=== PATIENT | male | born 1940 | race Caucasian/White ===

== ENCOUNTER 2025-10-22 18:54 | Emergency (ER) | payer MEDICARE, OTHER, SELFPAY ==
--- NOTE | ~2025-10-22 | CT_ITS ---
EXAMINATION: CT cervical spine wo con COMPARISON: None HISTORY: fall; accidentally fell out of wheelchair TECHNIQUE: Axial images were obtained through the spine without IV contrast. Coronal, sagittal reconstruction images were obtained from the axial views. CT scan performed using dose optimization techniques including the following automated exposure control; adjustment of mA and/or kV; use of iterative reconstruction technique. Automatic exposure control was used to reduce radiation dose. Permanent radiation dose record is archived to PACS. FINDINGS: Grade 1 anterolisthesis of C3 on C4. Grade 1 anterolisthesis of C7 on T1, no acute fracture is identified. There is a remote fracture of C2. Severe loss of disc height at C2-3, C3-4, C4-5 C5-6 and C6-7 with moderate to severe canal and foraminal stenosis. Soft tissues unremarkable. Impression: No acute fracture or subluxation. Moderate to severe degenerative changes detailed above with sequelae of previous trauma. MRI suggested to assess as clinically warranted. Reviewed, dictated and finalized at location P. TMENT COMMUNITY ASSISTANT MANAGER Impression: No acute fracture or subluxation. Moderate to severe degenerative changes detai led above with sequelae of previous trauma. MRI suggested to assess as clinical ly warranted.
--- NOTE | ~2025-10-22 | CT_ITS ---
EXAM/PROCEDURE: CT facial bones wo con HISTORY: fall COMPARISON: None available. TECHNIQUE: Facial bone CT without contrast FINDINGS: Mildly displaced minimally comminuted right-sided superomedial orbital rim fracture present with fracture extending into the right lamina papyracea. Mild infiltrative/edematous changes present along the superolateral margin of the the medial rectus muscle. Slight strandy or infiltrative changes may also be present on the medial aspect of the intraconal soft tissues as seen on image 58 series 3. No gross mass effect in the post septal soft tissues. The globes appear symmetric and intact. Small hematoma in the preseptal soft tissues especially along the lateral aspect. No other facial bone fracture seen. Dental structures are obscured by a dental amalgam. IMPRESSION: Mildly comminuted right superomedial orbital rim fracture with fracture extending into the lamina papyracea. Mild infiltrative/edematous appearing changes in the post septal soft tissues and possible intraconal soft tissues but no gross hematoma or mass effect. NOTE: Preliminary radiology report provided by [facility] radiologist/physician. Reviewed, dictated and finalized at location A. OTYPESETTER OPERATOR IMPRESSION: Mildly comminuted right superomedial orbital rim fracture with fracture extendi ng into the lamina papyracea. Mild infiltrative/edematous appearing changes in the post septal soft tissues and possible intraconal soft tissues but no gross hematoma or mass effect. NOTE: Preliminary radiology report provided by [facility] radiologist/physician.
--- NOTE | ~2025-10-22 | CT_ITS ---
EXAMINATION: CT brain wo delores, 10/22/2025 19:20 LIVESTOCK BROKER HISTORY: fall; accidentally fell out of wheelchair COMPARISON: No comparisons available. Technique: Axial images obtained of the brain without contrast. One or more of the following dose reduction techniques were used: automated exposure control, adjustment of the mA and/or kV according to patient size, use of iterative reconstruction technique. Findings: There are remote appearing bilateral basal ganglial lacunar infarcts with remote appearing subcortical bilateral frontal and parietal infarcts. No acute infarct or hemorrhage. No midline shift or mass effect. No extra-axial fluid collections. Mastoid air cells unremarkable. Sinuses and orbits unremarkable. No acute fracture. No significant facial or scalp soft tissue swelling evident. No radiopaque foreign body is seen. Impression: 1. Motion artifact limits evaluation. No acute infarct or hemorrhage Reviewed, dictated and finalized at location P. STOCK BROKER Impression: 1. Motion artifact limits evaluation. No acute infarct or hemorrhage
[2025-10-22 18:52] VITALS: BP 108/64; PULSE 66; RESP 13; O2SAT 95
--- NOTE | 2025-10-22 19:00 | ECG_ITS ---
Test Date: 2025-10-22 19:09:05 Measurements Intervals [place] Rate: 68 P: 0 UT: 0 QRS: 38 QRSD: 177 T: 28 QT: 462 QTc: 492 Interpretive Statements ATRIAL SENSE- ELECTRONIC VENTRICULAR PACEMAKER WITH VENTRICULAR PREMATURE COMPLEXES BASELINE ARTIFACT- I, II, III, AVR, AVL, AVF, V4-V6 NO FURTHER INTERPRETATION IS POSSIBLE ATYPICAL ECG No previous ECG available for comparison Electronically Signed On 10-22-2025 20:03:52 SURGICAL AIDES TEACHER by Kwesi Saini D.O.
[2025-10-22 19:12] VITALS: TEMP 35.9
--- NOTE | 2025-10-22 19:16 | PC.NURSE ---
EDP made aware of pt VS. no new orders.
[2025-10-22 19:25] LABS: Hematocrit 39.8 % (42.0-52.0); Hemoglobin 13.0 g/dL (14.0-18.0); Immature Granulocyte Percent A 0.2 % (0-0.5); Lymphocytes Absolute Auto 1.41 K/mm3 (0.9-3.2); Mean Corpuscular HGB Conc 32.7 g/dl (32-36); Mean Corpuscular Hemoglobin 29.1 pg (26-34); Mean Corpuscular Volume 89.0 fl (80-100); Nucleated Red Blood Cells Absolute Auto 0.000 K/mm3 (0.0-0.012); Nucleated Red Blood Cells Perc 0.0 % (0.0-0.2); Platelet Count Result 232 k/mm3 (150-375); Red Blood Count 4.47 M/mm3 (4.6-6.20); White Blood Count 5.2 K/mm3 (4.5-10.0)
[2025-10-22 19:30] LABS: INR 1.2; Prothrombin Time 15.0 Seconds (11.1-14.7)
--- NOTE | 2025-10-22 19:30 | ECG_ITS ---
Test Date: 2025-10-22 19:51:05 Measurements Intervals [place] Rate: 69 P: 0 IN: 0 QRS: 49 QRSD: 176 T: 53 QT: 445 QTc: 477 Interpretive Statements ATRIAL SENSE- ELECTRONIC VENTRICULAR PACEMAKER BASELINE ARTIFACT- I, II, III, AVR, AVL, AVF, V1-V6 NO FURTHER INTERPRETATION IS POSSIBLE ATYPICAL ECG Compared to ECG 10/22/2025 19:09:05 Ventricular premature complex(es) no longer present Electronically Signed On 10-22-2025 20:07:21 CIVIL STRUCTURAL DESIGNER by Kwesi Saini D.O.
[2025-10-22 19:31] LABS: Partial Thromboplastin Time 28.5 Seconds (22.3-36.8)
[2025-10-22 19:35] LABS: Alanine Aminotransferase 21 U/L (6-50); Albumin Level 3.7 g/dL (3.5-5.1); Alkaline Phosphatase 103 U/L (38-126); Anion Gap 2 mmol/L (4-12); Aspartate Amino Transferase 23 U/L (17-59); Bilirubin,Total 0.4 mg/dL (0.2-1.3); Blood Urea Nitrogen 23 mg/dL (9-20); Calcium 9.3 mg/dL (8.4-10.2); Carbon Dioxide 33 mmol/L (22-30); Chloride 108 mmol/L (98-107); Estimated CRCL calculation 54 ml/min; Estimated Glomerular Filt Rate > 60; Glucose 130 mg/dL (65-110); Potassium 3.9 mmol/L (3.4-5.0); Sodium 143 mmol/L (137-145); Total Protein 6.7 g/dL (6.3-8.2)
--- NOTE | 2025-10-22 19:57 | ED.GENADULT ---
HPI - General Adult General Chief complaint: Fall Stated complaint: fall Time Seen by Provider: 10/22/25 18:57 History of Present Illness HPI narrative: 84-year-old male presenting from [facility] skilled nursing by EMS after sustaining a fall from his wheelchair. EMS relays to nursing staff that the patient was in his wheelchair and fell forward hitting his head. Patient is A&O x0 with EMS noting he is A&O x1-2 at baseline. Significant history of Alzheimer's and dementia. Of note, patient receives Seroquel and Ativan TID for agitation. Patient received these medications prior to arrival. Related Data Allergies Allergy/AdvReac Type Severity Reaction Status Date / Time levofloxacin (From Levaquin) Allergy Unknown Verified 10/22/25 19:07 metoprolol Allergy Unknown Verified 10/22/25 19:07 oxycodone (From OxyContin) Allergy Unknown Verified 10/22/25 19:07 Review of Systems Review of Systems: All systems reviewed & are unremarkable except as noted in HPI and below Exam Narrative: GENERAL: No acute distress. Does not follow simple commands. Generalized tremor. HEAD: Approx. 2x2cm right-sided forehead superficial abrasion and periorbital right eye swelling with midline hematoma. EYES: PERRLA and EOMI. ENT: Nares clear, no rhinorrhea or epistaxis. Mucous membranes moist. Oropharynx without tonsillar hypertrophy exudate or other lesions. Bilateral TMs pearly urbina non-bulging NECK: Supple. No adenopathy or masses. No carotid bruits or JVD CHEST: Clear to auscultation. No respiratory distress. No wheezes rales or rhonchi HEART: Regular rate and rhythm. No murmur heard. Normal peripheral pulses. ABDOMEN: Soft, nontender, nondistended, normal active bowel sounds. EXTREMITIES: Moves all extremities. Bilateral LE erythema and mild pitting edema up to mid calf. SKIN: Warm, dry. Erythematous lower extremities. NEURO: Alert and oriented x0. Course Vital Signs Vital signs: Vital Signs Pulse Rate 66 10/22/25 18:52 Respiratory Rate 13 10/22/25 18:52 Blood Pressure 108/64 10/22/25 18:52 Pulse Oximetry 95 10/22/25 18:52 Oxygen Delivery Room Air 10/22/25 18:52 Temperature 96.6 F L 12/14/25 19:12 Pulse Rate 66 10/22/25 18:52 Respiratory Rate 13 10/22/25 18:52 Blood Pressure 108/64 10/22/25 18:52 Pulse Oximetry 95 10/22/25 18:52 Oxygen Delivery Room Air 10/22/25 18:52 MDM MDM Narrative Medical decision making narrative: 84-year-old male presenting from [facility] by EMS after sustaining a fall from his wheelchair. EMS relays to nursing staff that the patient was in his wheelchair and fell forward hitting his head. Patient is A&O x0 with EMS noting he is A&O x1-2 at baseline. Significant history of Alzheimer's and dementia. Of note, patient receives Seroquel and Ativan TID for agitation. Patient received these medications prior to arrival. Patient's records do not indicate the use of blood thinners. Upon my initial assessment patient is unable to follow simple commands and refuses to open his eyes for sufficient exam. Patient's EKGs and labs are without significant high risk changes. Vitals are stable. CT head and neck demonstrates no acute abnormalities. CT facial demonstrates a comminuted displaced left superior medial orbital rim fracture with subtle associated inflammatory change. There is a minimal amount of hemorrhage adjacent to the lateral rectus muscle without significant mass effect upon this structure. Right preseptal soft tissue hematoma. I personally got in touch with the patient's POA who states he wanted us to do everything we could for the patient. Discussed with Dr. Andrews with ENT patient presentation and workup. The only recommendation he had was discussing the findings with ophthalmology for concerns regarding the hemorrhage adjacent to the lateral rectus muscle. Initially called [facility] but then the POA requested [facility]. Discussed with Dr. Mariza Tipton with [facility] Ophthalmology patient presentation and workup and she states that as long as there is no concern for entrapment and compartment syndrome, he can be seen outpatient in their clinic. ER provider Dr. Gay was able to perform a better physical exam which demonstrated no signs of entrapment or globe injury noting that the exam was still difficult. Patient's POA was updated on the patient's workup and treatment plan. He agrees with discussion and plan of care. All questions were answered to the patient's satisfaction. The patient is appropriate for outpatient treatment and follow-up. Given reasons to return. Differential Diagnosis Differential Diagnosis: Differential diagnostic considerations for head injury/trauma include post-concussion syndrome, closed head injury, intercranial hemorrhage, basilar skull fracture, facial fractures, globe injury, laceration. Lab Data 10/22/25 19:09 10/22/25 19:09 Labs: Lab Results 10/22/25 10/22/25 Range/Units 19:09 19:11 WBC 5.2 (4.5-10.0) K/mm3 RBC 4.47 L (4.6-6.20) M/mm3 Hgb 13.0 L (14.0-18.0) g/dL Hct 39.8 L (42.0-52.0) % MCV 89.0 (80-100) fl MCH 29.1 (26-34) pg MCHC 32.7 (32-36) g/dl RDW 13.1 (11.5-14.5) % Plt Count 232 (150-375) k/mm3 MPV 10.9 H (7.4-10.4) fl Immature Gran % (Auto) 0.2 (0-0.5) % Neut % (Auto) 52.5 (45.5-73.1) % Lymph % (Auto) 27.4 (18.3-44.2) % [place] % (Auto) 14.8 H (2.6-8.5) % Eos % (Auto) 4.7 H (0-4.4) % Baso % (Auto) 0.4 (0.2-1.2) % Lymph # (Auto) 1.41 (0.9-3.2) K/mm3 [place] # (Auto) 0.8 H (0.1-0.6) K/mm3 Eos # (Auto) 0.2 (0-0.3) K/mm3 Baso # (Auto) 0.0 (0.0-0.1) K/mm3 Abs Immat Gran (auto) 0.01 (0.00-0.031) K/mm3 Absolute Neuts (auto) 2.7 (1.3-6.7) K/mm3 Absolute Nucleated RBC 0.000 (0.0-0.012) K/mm3 Nucleated RBC % 0.0 (0.0-0.2) % PT 15.0 H (11.1-14.7) Seconds INR 1.2 APTT 28.5 (22.3-36.8) Seconds Sodium 143 (137-145) mmol/L Potassium 3.9 (3.4-5.0) mmol/L Chloride 108 H (98-107) mmol/L Carbon Dioxide 33 H (22-30) mmol/L Anion Gap 2 L (4-12) mmol/L BUN 23 H (9-20) mg/dL Creatinine 0.95 (0.7-1.3) mg/dL Estim Creat Clear Calc 54 ml/min Estimated GFR > 60 (59 - ) Glucose 130 H (65-110) mg/dL Lactic Acid 0.8 (0.7-2.0) mmol/L Calcium 9.3 (8.4-10.2) mg/dL Total Bilirubin 0.4 (0.2-1.3) mg/dL AST 23 (17-59) U/L ALT 21 (6-50) U/L Alkaline Phosphatase 103 (38-126) U/L Total Protein 6.7 (6.3-8.2) g/dL Albumin 3.7 (3.5-5.1) g/dL Imaging Data Radiologist's impression: ITS Impressions Head CT 10/22/25 19:41 Impression: 1. Motion artifact limits evaluation. No acute infarct or hemorrhage Cervical Spine CT 10/22/25 20:03 Impression: No acute fracture or subluxation. Moderate to severe degenerative changes detailed above with sequelae of previous trauma. MRI suggested to assess as clinically warranted. Face CT 10/23/25 07:48 IMPRESSION: Mildly comminuted right superomedial orbital rim fracture with fracture extending into the lamina papyracea. Mild infiltrative/edematous appearing changes in the post septal soft tissues and possible intraconal soft tissues but no gross hematoma or mass effect. NOTE: Preliminary radiology report provided by [facility] radiologist/physician. ECG Data EKG #1: ECG completion date: 10/22/25 ECG completion time: 19:51 normal rate and sinus rhythm Pacemaker function: normal pacer function EKG #2: ECG completion date: 10/22/25 ECG completion time: 19:09 normal rate and sinus rhythm Pacemaker function: normal pacer function Discharge Plan Discharge Clinical Impression: Fall, Hematoma of eyelid, Head injury due to trauma, Dementia, AD (Alzheimer's disease) Patient Disposition: NH [facility]/Asst Living Condition: Stable Instructions: Head Injury (ED), Fall Prevention (ED) Additional Instructions: Patient sustained an injury to his right eye. Dr. Mariza Tipton with [facility] Ophthalmology recommended close follow-up outpatient. Call [phone] to schedule an appointment. Return to the ER if you experience any increase in redness, swelling, pain, fevers/chills, chest pain, shortness of breath, or any symptoms concerning to you. Follow-up with primary care provider for other general concerns. Patient Language: Romanian Follow-up/Referrals: Dr. Mariza Tipton MD [Other] Referral Note: [facility] Ophthalmology PHYSICIAN,AUTO TRANSMISSION SPECIALIST [Primary Care Provider, Internal Medicine]
[2025-10-22] MEDS: LORazepam INJ (*CRX) 2 MG/ML VIAL IV PUSH (23:39)
== END 2025-10-23 00:38 ==
DX: S00.11XA Contusion of right eyelid and periocular area, initial encounter (principal); G30.9 Alzheimer's disease, unspecified; F02.80 Dementia in other diseases classified elsewhere, unspecified severity, without behavioral disturbance, psychotic disturbance, mood disturbance, and anxiety; Z95.0 Presence of cardiac pacemaker; W05.0XXA Fall from non-moving wheelchair, initial encounter
CPT/HCPCS: 36415; 70450; 70486; 72125; 80053; 83605; 85025; 85610; 85730; 93005; 96374; 99284; J2060

== ENCOUNTER 2025-10-27 17:22 | Observation (INO) | payer MEDICARE, SELFPAY ==
[2025-10-27] VITALS (7 sets, daily range): BP systolic 127–140; BP diastolic 51–96; PULSE 88–97; RESP 16–26; TEMP 37.1–37.2; O2SAT 96–97; BMI 34.6
--- NOTE | ~2025-10-27 | CT_ITS ---
CT chst ab pel thor lum wo HISTORY: FALL . COMPARISON: None. TECHNIQUE: Axial images of the chest, abdomen and pelvis were obtained without infusion of intravenous contrast which sensitivity. FINDINGS: CT CHEST: The examination demonstrates no pulmonary nodules, infiltrates and/or effusions. Cardiac size and mediastinal configuration are normal in appearance. There is aneurysmal dilatation of the aorta measuring 4.2 cm. Ossified granulomas are noted throughout the lungs bilaterally. The visualized organs of the upper abdomen are unremarkable. IMPRESSION: No acute cardiopulmonary process. Aneurysmal dilatation of the ascending aorta measuring 4.2 cm. No pathologic enhancement is noted. No pathologically enlarged mediastinal lymphadenopathy is noted. CT abdomen and pelvis with contrast: The liver parenchyma is unremarkable. No intrahepatic mass or ductal dilatation is evident. The gallbladder is unremarkable. The pancreas and spleen are normal in appearance. The adrenal glands are symmetric in size. The kidneys demonstrate symmetric uptake and excretion of contrast. No cystic mass is evident. There is no solid mass. There is no hydronephrosis. Evaluation of the stomach and bowel loops are limited due to lack of oral contrast. Fat-containing inguinal hernias are noted bilaterally. The bladder and rectum are normal. No free intraperitoneal fluid or air is evident. There is no significant retroperitoneal lymphadenopathy. The aorta, visceral vessels and renal arteries demonstrate normal caliber and patency. The lower thoracic and lumbar vertebrae are in normal alignment. IMPRESSION: No acute abnormality is noted in the abdomen and pelvis. CT thoracic spine: [There is normal alignment of the thoracic vertebrae.] [No thoracic compression fracture is evident.] [There is no prevertebral soft tissue swelling.] Generative changes with disc space narrowing are noted. [There is no high-grade spinal canal stenosis or foraminal narrowing.] IMPRESSION: 1. [No thoracic compression fracture or prevertebral soft tissue swelling is evident.] 2. [There are no significant degenerative changes.] 3. [No high-grade spinal canal stenosis or foraminal narrowing is evident.] CT lumbar spine: FINDINGS: The axial images demonstrate no acute fracture or paravertebral soft tissue swelling. Degenerative changes with disc bulging and uncovertebral hypertrophy are noted. IMPRESSION: No acute fracture or subluxation. All CT scans at this facility are performed using low dose modulation techniques as appropriate to perform exam including the following: automated exposure control; use of iterative reconstruction technique; adjustment of the mA and/or kV according to patient size (this includes techniques or standardized protocols for targeted exams where dose is matched to indication/reason for exam) Reviewed, dictated and finalized at location S. R BOOT TOP ASSEMBLER IMPRESSION: No acute cardiopulmonary process. Aneurysmal dilatation of the ascending aorta measuring 4.2 cm. No pathologic enhancement is noted. No pathologically enlarged mediastinal lymphadenopathy is noted. CT abdomen and pelvis with contrast: The liver parenchyma is unremarkable. No intrahepatic mass or ductal dilatation is evident. The gallbladder is unremarkable. The pancreas and spleen are alcon l in appearance. The adrenal glands are symmetric in size. The kidneys demonstrate symmetric uptake and excretion of contrast. No cystic m ass is evident. There is no solid mass. There is no hydronephrosis. Evaluation of the stomach and bowel loops are limited due to lack of oral contr ast. Fat-containing inguinal hernias are noted bilaterally. The bladder and rectum are normal. No free intraperitoneal fluid or air is evid ent. There is no significant retroperitoneal lymphadenopathy. The aorta, visceral vessels and renal arteries demonstrate normal caliber and p atency. The lower thoracic and lumbar vertebrae are in normal alignment. IMPRESSION: No acute abnormality is noted in the abdomen and pelvis. CT thoracic spine: [There is normal alignment of the thoracic vertebrae.] [No thoracic compressio n fracture is evident.] [There is no prevertebral soft tissue swelling.] Generative changes with disc space narrowing are noted. [There is no high-grade spinal canal stenosis or foraminal narrowing.] IMPRESSION: 1. [No thoracic compression fracture or prevertebral soft tissue swelling is e vident.] 2. [There are no significant degenerative changes.] 3. [No high-grade spinal canal stenosis or foraminal narrowing is evident.] CT lumbar spine: FINDINGS: The axial images demonstrate no acute fracture or paravertebral soft tissue swelling. Degenerative changes with disc bulging and uncovertebral hyper trophy are noted. IMPRESSION: No acute fracture or subluxation. All CT scans at this facility are performed using low dose modulation techniqu es as appropriate to perform exam including the following: automated exposure c ontrol; use of iterative reconstruction technique; adjustment of the mA and/or kV according to patient size (this includes techniques or standardized protocol s for targeted exams where dose is matched to indication/reason for exam)
--- NOTE | ~2025-10-27 | XR_ITS ---
XR chest 1V INDICATION:. 84 years Male LETHARGY COMPARISON: None FINDINGS: A single view of the chest demonstrates normal heart size. The lungs are clear. There is no evidence of pneumothorax or pleural effusion. IMPRESSION: No acute pulmonary findings. Reviewed, dictated and finalized at location S. YSIS RN
--- NOTE | ~2025-10-27 | CT_ITS ---
CT brain wo con HISTORY:LETHARGY COMPARISON: None. TECHNIQUE: Axial images were obtained of the head without intravenous contrast. FINDINGS: No acute intracranial hemorrhage, mass effect or midline shift. No extra-axial fluid collections. There is chronic white matter microangiopathic changes within the periventricular white matter.The calvarium is intact. Visualized paranasal sinuses and mastoid air cells are clear. IMPRESSION: No acute intracranial hemorrhage or extra axial fluid collections. Chronic white matter microangiopathic changes. All CT scans at this facility are performed using low dose modulation techniques as appropriate to perform exam including the following: automated exposure control; use of iterative reconstruction technique; adjustment of the mA and/or kV according to patient size (this includes techniques or standardized protocols for targeted exams where dose is matched to indication/reason for exam). Reviewed, dictated and finalized at location S. ING MACHINE TECHNICIAN IMPRESSION: No acute intracranial hemorrhage or extra axial fluid collections. Chronic white matter microangiopathic changes. All CT scans at this facility are performed using low dose modulation techniqu es as appropriate to perform exam including the following: automated exposure c ontrol; use of iterative reconstruction technique; adjustment of the mA and/or kV according to patient size (this includes techniques or standardized protocol s for targeted exams where dose is matched to indication/reason for exam).
--- NOTE | ~2025-10-27 | CT_ITS ---
CT FACIAL BONES WITHOUT CONTRAST INDICATION: Trauma COMPARISON: None. TECHNIQUE: Axial 2.5 mm images of the maxillofacial bones/sinuses were obtained without contrast. Additional axial, coronal and sagittal reformatted images were rendered. FINDINGS: No facial bone fracture is identified. The sinuses are clear. The nasal septum is midline. No soft tissue swelling or foreign body is noted. Chronic-appearing fracture deformity at the base of the dens. On reformatted images, there is no orbital floor fracture. The temporomandibular joint alignment is maintained. IMPRESSION: Normal CT of the face without contrast. All CT scans at this facility are performed using low dose modulation techniques as appropriate to perform exam including the following: automated exposure control; use of iterative reconstruction technique; adjustment of the mA and/or kV according to patient size (this includes techniques or standardized protocols for targeted exams where dose is matched to indication/reason for exam). Reviewed, dictated and finalized at location S. [facility] IMPRESSION: Normal CT of the face without contrast. All CT scans at this facility are performed using low dose modulation techniqu es as appropriate to perform exam including the following: automated exposure c ontrol; use of iterative reconstruction technique; adjustment of the mA and/or kV according to patient size (this includes techniques or standardized protocol s for targeted exams where dose is matched to indication/reason for exam).
--- NOTE | 2025-10-27 17:38 | ED.AMS ---
HPI - Altered Mental Status General Chief Complaint: Altered Mental Status Stated Complaint: lethargic, confused Time Seen by Provider: 10/27/25 17:38 Source: EMS Mode of arrival: EMS Limitations: clinical condition and dementia History of Present Illness HPI narrative: 84 YEARS OLD WHITE MALE CAME FROM [facility] BY AMBULANCE WITH LETHARGY AND CONFUSION MORE THAN USUAL. PATIENT HAD A FALL 2 DAYS AGO, CT SCAN OF THE FACE SHOWED MILDLY COMMINUTED RIGHT SUPERIOR MEDIAL ORBITAL RIM FRACTURE WITH FRACTURE EXTENDING INTO THE LAMINA PAPYRACEA. MILD INFILTRATIVE /EDEMATOUS APPEARING CHANGES IN THE POST SEPTAL SOFT TISSUE ON THE POSSIBLE INTRACONAL SOFT TISSUE BUT NO GROSS HEMATOMA OR MASS EFFECT. HISTORY OF DEMENTIA. PATIENT'S BROTHER WHO HAVE THE POWER OF BLOCK OPERATOR IS TELLING ME THAT PATIENT IS SCHEDULED TO GO TO [facility] ON November 2 FIX RIGHT ORBITAL FRACTURE. PATIENT IS COMFORT FOCUS TREATMENT: PRIMARY GOAL IS MAXIMIZING COMFORT THROUGH SYMPTOM MANAGEMENT. ALLOWING NATURAL . Related Data Allergies Allergy/AdvReac Type Severity Reaction Status Date / Time levofloxacin (From Levaquin) Allergy Unknown Verified 10/27/25 17:41 metoprolol Allergy Unknown Verified 10/27/25 17:41 oxycodone (From OxyContin) Allergy Unknown Verified 10/27/25 17:41 Review of Systems Review of Systems: All systems reviewed & are unremarkable except as noted in HPI and below Exam Narrative: GENERAL APPEARANCE: WELL-DEVELOPED, WELL-NOURISHED, AGITATED, RESTLESS ORAL BREATHING SKIN: NORMAL COLOR ECCHYMOSIS RIGHT FOREHEAD AND RIGHT UPPER EYELID HEAD: NORMOCEPHALIC, NONTRAUMATIC EYES: CLEAR CONJUNCTIVA ENT: OROPHARYNX NORMAL, EARS NORMAL, NOSE NORMAL NECK: SUPPLE CHEST AND RESPIRATORY: AIRWAY PATENT, NO RESPIRATORY DISTRESS, NO ACCESSORY MUSCLE USE HEART: REGULAR RATE/RHYTHM ABDOMEN: SOFT, NONTENDER, NO ORGANOMEGALY, QUIET BOWEL SOUNDS VASCULAR: NORMAL PERIPHERAL PULSES, NORMAL CAPILLARY REFILL. MUSCULOSKELETAL: DOES NOT FOLLOW VERBAL COMMANDS NO LOCALIZED TENDERNESS NEUROLOGIC: ALERT , CONFUSED, LETHARGIC, AGITATED Course Vital Signs Vital signs: Vital Signs Temperature 37.2 C 10/27/25 17:23 Pulse Rate 97 10/27/25 17:23 Respiratory Rate 26 H 10/27/25 17:23 Blood Pressure 127/51 L 10/27/25 17:23 Pulse Oximetry 96 10/27/25 17:23 Oxygen Delivery Room Air 10/27/25 17:23 Temperature 37.1 C 10/27/25 20:28 Pulse Rate 90 10/27/25 20:28 Respiratory Rate 16 10/27/25 20:28 Blood Pressure 140/96 H 10/27/25 20:28 Pulse Oximetry 97 10/27/25 20:28 Oxygen Delivery Room Air 10/27/25 17:40 MDM MDM Narrative Medical decision making narrative: PATIENT CAME WITH PATHOLOGY, AGITATION LESS RESPONSIVE VITAL SIGNSSHOWING RESPIRATORY RATE 26 ON ARRIVAL TO THE ED OTHERWISE WITHIN NORMAL LIMIT PHYSICAL EXAMINATION LETHARGIC, AGITATED, RESTLESS RIGHT UPPER EYELID ECCHYMOSIS , DOES NOT FOLLOW VERBAL COMMANDS DIFFERENTIAL DIAGNOSIS AGITATION SECONDARY TO FACIAL BONE FRACTURE, ELECTROLYTE IMBALANCE, DEHYDRATION, URINARY TRACT INFECTION PNEUMONIA, RIB FRACTURE, SPINE FRACTURE. BLOOD WORKUP TODAY INCLUDES CBC, CMP, BLOOD CULTURE, LACTIC ACID WBC 11.1, SODIUM 151, BUN 41, CREATININE 1.5, URINALYSIS SHOWED NO EVIDENCE OF INFECTION CHEST X-RAY SHOWED NO ACUTE ABNORMALITY CT HEAD WITHOUT CONTRAST SHOWED NO ACUTE ABNORMALITY CT FACIAL BONE WITHOUT CONTRAST SHOWED NO ACUTE ABNORMALITY CT CHEST, ABDOMEN AND PELVIS DOUBT CONTRAST SHOWED ANEURYSMAL DILATATION OF THE ASCENDING AORTA MEASURING 4.2, NO ACUTE ABNORMALITY IS NOTED IN THE ABDOMEN AND PELVIS, CT THORACIC SPINE SHOWED NO ACUTE ABNORMALITY CT LUMBAR SPINE WITHOUT CONTRAST SHOWED NO ACUTE FRACTURE OR SUBLUXATION DIAGNOSIS: JACKLYN, HYPERNATREMIA, ASCENDING AORTIC TIME ANEURYSM 4.2. ( SURGERY IS TYPICALLY RECOMMENDED AROUND 5.5 CM) PATIENT BROTHER, ALCIRA WHO HAVE THE POWER OF BLOCK OPERATOR, PHONE NUMBER IS [phone] REQUESTED HOSPICE REFERRAL. ADMIT TO HOSPITALIST Differential Diagnosis Differential Diagnosis: ABOVE Medical Records I have reviewed the following patient records and this information was taken into consideration when formulating the assessment and plan.: previous labs, previous ER visits and previous hospitalizations Lab Data 10/27/25 18:49 10/27/25 18:49 Labs: Lab Results 10/27/25 10/27/25 Range/Units 18:23 18:49 WBC 11.1 H (4.5-10.0) K/mm3 RBC 4.59 L (4.6-6.20) M/mm3 Hgb 13.2 L (14.0-18.0) g/dL Hct 40.3 L (42.0-52.0) % MCV 87.8 (80-100) fl MCH 28.8 (26-34) pg MCHC 32.8 (32-36) g/dl RDW 13.3 (11.5-14.5) % Plt Count 265 (150-375) k/mm3 MPV 11.3 H (7.4-10.4) fl Immature Gran % (Auto) 0.3 (0-0.5) % Neut % (Auto) 74.9 H (45.5-73.1) % Lymph % (Auto) 12.7 L (18.3-44.2) % [place] % (Auto) 11.4 H (2.6-8.5) % Eos % (Auto) 0.5 (0-4.4) % Baso % (Auto) 0.2 (0.2-1.2) % Lymph # (Auto) 1.41 (0.9-3.2) K/mm3 [place] # (Auto) 1.3 H (0.1-0.6) K/mm3 Eos # (Auto) 0.1 (0-0.3) K/mm3 Baso # (Auto) 0.0 (0.0-0.1) K/mm3 Abs Immat Gran (auto) 0.03 (0.00-0.031) K/mm3 Absolute Neuts (auto) 8.3 H (1.3-6.7) K/mm3 Absolute Nucleated RBC 0.000 (0.0-0.012) K/mm3 Nucleated RBC % 0.0 (0.0-0.2) % PT 15.4 H (11.1-14.7) Seconds INR 1.2 APTT 28.0 (22.3-36.8) Seconds Sodium 151 H (137-145) mmol/L Potassium 3.7 (3.4-5.0) mmol/L Chloride 116 H (98-107) mmol/L Carbon Dioxide 27 (22-30) mmol/L Anion Gap 8 (4-12) mmol/L BUN 41 H D (9-20) mg/dL Creatinine 1.50 H (0.7-1.3) mg/dL Estim Creat Clear Calc 34 ml/min Estimated GFR 45 L (59 - ) Glucose 147 H (65-110) mg/dL Lactic Acid 0.8 (0.7-2.0) mmol/L Calcium 9.4 (8.4-10.2) mg/dL Total Bilirubin 1.0 (0.2-1.3) mg/dL AST 36 (17-59) U/L ALT 31 (6-50) U/L Alkaline Phosphatase 137 H (38-126) U/L Total Creatine Kinase 163 (55-170) U/L Total Protein 7.0 (6.3-8.2) g/dL Albumin 3.8 (3.5-5.1) g/dL Urine Color Yellow (Yellow) Urine Appearance Clear (Clear) Urine pH 5.0 (5.0-9.0) Ur Specific [place] 1.013 (1.001-1.035) Urine Protein Negative (Negative) mg/dL Urine Glucose (UA) Negative (Negative) mg/dL Urine Ketones Negative (Negative) mg/dL Ur Blood (Man) 2+ H (Negative) Urine Nitrate Negative (Negative) Urine Bilirubin Negative (Negative) Urine Urobilinogen 1.0 (<2.0) mg/dL Add Ur Microanalysis Reviewed Leukocyte Esterase Rfl Negative (Negative) LETA/UL Urine RBC 21-50 H (0-2) /hpf Urine WBC 0-5 (0-3) /hpf Ur Squamous Epith Cells None seen (Few) /hpf Urine Bacteria None seen /hpf Urine Casts 0-2 ABG Data ABG results: 10/27/25 18:26 Puncture Site Right brachial ABG pH 7.438 ABG pCO2 41.0 ABG pO2 63.7 L ABG PO2/FiO2 Ratio 3.03 ABG HCO3 27.1 H ABG O2 Saturation 93.1 L ABG O2 Content 18.2 ABG Base Excess 2.7 A-a Gradient 36.9 Oxyhemoglobin 91.1 Total Hemoglobin 14.2 O2 Delivery Device Room air O2 Liters/Min Not Reportable FiO2 21 Imaging Data Radiologist's impression: ITS Impressions Head CT 10/27/25 19:35 IMPRESSION: No acute intracranial hemorrhage or extra axial fluid collections. Chronic white matter microangiopathic changes. All CT scans at this facility are performed using low dose modulation techniques as appropriate to perform exam including the following: automated exposure control; use of iterative reconstruction technique; adjustment of the mA and/or kV according to patient size (this includes techniques or standardized protocols for targeted exams where dose is matched to indication/reason for exam). Chest/Abdomen/Pelvis/Spine CT 10/27/25 19:42 IMPRESSION: No acute cardiopulmonary process. Aneurysmal dilatation of the ascending aorta measuring 4.2 cm. No pathologic enhancement is noted. No pathologically enlarged mediastinal lymphadenopathy is noted. CT abdomen and pelvis with contrast: The liver parenchyma is unremarkable. No intrahepatic mass or ductal dilatation is evident. The gallbladder is unremarkable. The pancreas and spleen are normal in appearance. The adrenal glands are symmetric in size. The kidneys demonstrate symmetric uptake and excretion of contrast. No cystic mass is evident. There is no solid mass. There is no hydronephrosis. Evaluation of the stomach and bowel loops are limited due to lack of oral contrast. Fat-containing inguinal hernias are noted bilaterally. The bladder and rectum are normal. No free intraperitoneal fluid or air is evident. There is no significant retroperitoneal lymphadenopathy. The aorta, visceral vessels and renal arteries demonstrate normal caliber and patency. The lower thoracic and lumbar vertebrae are in normal alignment. IMPRESSION: No acute abnormality is noted in the abdomen and pelvis. CT thoracic spine: [There is normal alignment of the thoracic vertebrae.] [No thoracic compression fracture is evident.] [There is no prevertebral soft tissue swelling.] Generative changes with disc space narrowing are noted. [There is no high-grade spinal canal stenosis or foraminal narrowing.] IMPRESSION: 1. [No thoracic compression fracture or prevertebral soft tissue swelling is evident.] 2. [There are no significant degenerative changes.] 3. [No high-grade spinal canal stenosis or foraminal narrowing is evident.] CT lumbar spine: FINDINGS: The axial images demonstrate no acute fracture or paravertebral soft tissue swelling. Degenerative changes with disc bulging and uncovertebral hypertrophy are noted. IMPRESSION: No acute fracture or subluxation. All CT scans at this facility are performed using low dose modulation techniques as appropriate to perform exam including the following: automated exposure control; use of iterative reconstruction technique; adjustment of the mA and/or kV according to patient size (this includes techniques or standardized protocols for targeted exams where dose is matched to indication/reason for exam) Face CT 10/27/25 20:07 IMPRESSION: Normal CT of the face without contrast. All CT scans at this facility are performed using low dose modulation techniques as appropriate to perform exam including the following: automated exposure control; use of iterative reconstruction technique; adjustment of the mA and/or kV according to patient size (this includes techniques or standardized protocols for targeted exams where dose is matched to indication/reason for exam). Chest X-Ray 10/27/25 20:32 IMPRESSION: No acute pulmonary findings. Critical Care Time Critical Care Time Critical Care Time: Yes Time Type: Intermittent Initial evaluation, discuss w/ involved parties, attempting to gather old records: 10 minutes Documenting medical record: 5 minutes Review of results (EKG's, labs, imaging): 5 minutes Serial repeat bedside evaluation: 10 minutes Discussing case with multiple memebers of the care team and consultants: 20 minutes Total Critical Care Time: 50 Critical Care Time Overview: PHONE CALL TO PATIENT'S BROTHER TWICE, 7 MINUTE EACH TIME OF TALKING. Discharge Plan Discharge Clinical Impression: JACKLYN (acute kidney injury), Acute hypernatremia, CHI (closed head injury), Aneurysm of ascending aorta, Admission for hospice care Patient Disposition: Still a Patient Condition: Guarded Prognosis Additional Instructions: ADMIT TO HOSPITALIST Patient Language: Urdu Follow-up/Referrals: PHYSICIAN,OPERATIONS SUPPORT ANALYST [Primary Care Provider, Internal Medicine]
--- NOTE | 2025-10-27 17:48 | ECG_ITS ---
Test Date: 2025-10-27 18:00:27 Measurements Intervals [place] Rate: 93 P: 0 MO: 0 QRS: 54 QRSD: 165 T: -42 QT: 402 QTc: 500 Interpretive Statements ATRIAL SENSE- ELECTRONIC VENTRICULAR PACEMAKER BASELINE ARTIFACT- I, III, AVR, AVL, AVF, V4-V6 NO FURTHER INTERPRETATION IS POSSIBLE ATYPICAL ECG Compared to ECG 10/22/2025 19:51:05 No significant changes Electronically Signed On 10-27-2025 21:12:12 STUDENT LIFE VICE PRESIDENT by Kwesi Saini D.O.
[2025-10-27 18:29] LABS: Alveolar/Arterial O2 Gradient 36.9 mmHg; Fractional Inspired Oxygen 21 %; HCO3 ABG 27.1 mEq/l (22.0-26.0); Oxygen Content ABG 18.2 %vol (16.0-22.0); Oxygen Saturation ABG 93.1 % (95.0-100.0); PCO2 ABG 41.0 mmHg (35.0-45.0); PO2 ABG 63.7 mmHg (80.0-100.0); PO2 FiO2 Ratio Arterial Blood 3.03 %
[2025-10-27 18:30] LABS: Site Drawn RIGHT BRACHIAL
[2025-10-27 18:57] LABS: Hematocrit 40.3 % (42.0-52.0); Hemoglobin 13.2 g/dL (14.0-18.0); Immature Granulocyte Percent A 0.3 % (0-0.5); Lymphocytes Absolute Auto 1.41 K/mm3 (0.9-3.2); Mean Corpuscular HGB Conc 32.8 g/dl (32-36); Mean Corpuscular Hemoglobin 28.8 pg (26-34); Mean Corpuscular Volume 87.8 fl (80-100); Nucleated Red Blood Cells Absolute Auto 0.000 K/mm3 (0.0-0.012); Nucleated Red Blood Cells Perc 0.0 % (0.0-0.2); Platelet Count Result 265 k/mm3 (150-375); Red Blood Count 4.59 M/mm3 (4.6-6.20); White Blood Count 11.1 K/mm3 (4.5-10.0)
[2025-10-27] MEDS: MORPHINE SULFATE (*CRX) 4 MG/ML INJ 2 MG IV PUSH (19:04)
[2025-10-27] MEDS: ONDANSETRON INJ 4 MG/2 ML VIAL IV PUSH (19:04)
[2025-10-27 19:08] LABS: Alanine Aminotransferase 31 U/L (6-50); Albumin Level 3.8 g/dL (3.5-5.1); Alkaline Phosphatase 137 U/L (38-126); Anion Gap 8 mmol/L (4-12); Aspartate Amino Transferase 36 U/L (17-59); Bilirubin,Total 1.0 mg/dL (0.2-1.3); Blood Urea Nitrogen 41 mg/dL (9-20); Calcium 9.4 mg/dL (8.4-10.2); Carbon Dioxide 27 mmol/L (22-30); Chloride 116 mmol/L (98-107); Estimated CRCL calculation 34 ml/min; Estimated Glomerular Filt Rate 45; Glucose 147 mg/dL (65-110); Potassium 3.7 mmol/L (3.4-5.0); Sodium 151 mmol/L (137-145); Total Protein 7.0 g/dL (6.3-8.2)
[2025-10-27 19:12] LABS: INR 1.2; Partial Thromboplastin Time 28.0 Seconds (22.3-36.8); Prothrombin Time 15.4 Seconds (11.1-14.7)
[2025-10-27 19:19] LABS: Creatine Kinase 163 U/L (55-170)
[2025-10-27 19:19] LABS: Add Urine Microscopic? YES; Appearance Urine Clear (Clear); Glucose Urine UA Negative (Negative); Leukocyte Esterase Ur Negative LEU/UL (Negative); Need Manual Microscopic Reviewed; Nitrate Urine Negative (Negative); Non Pathogenic Casts 0-2; Specific Grav Ur 1.013 (1.001-1.035)
[2025-10-27] MEDS: SODIUM CHLORIDE 0.9% IV 1,000 ML 999 ML IV CONT (21:23)
--- NOTE | 2025-10-27 23:02 | WPCEDHO ---
ED Hand Off Checklist All vitals saved:yes IV Site documented:yes All med administrations documented:yes Triage Note Triage Note Pt to ED via [facility] 10/27/25 17:23 with c/o confusion and lethargy. Pt from [facility] assisted living. Pt fell 2 days ago and had facial fractures on his right side. Staff reported pt has been not himself since he got back. Staff states pt is usually ambulatory with a cane, but was unable to move around today. Allergies levofloxacin (From Levaquin) Allergy (Verified 10/27/25 17:41) Unknown metoprolol Allergy (Verified 10/27/25 17:41) Unknown oxycodone (From OxyContin) Allergy (Verified 10/27/25 17:41) Unknown Administered/Completed Medications Discontinued Medications Sodium Chloride (Normal Saline Iv) 1,000 mls @ 999 mls/hr IV CONT .Q1H1M STA Stop: 10/27/25 22:17 Last Infusion: 10/27/25 22:47 Dose: Infused Documented By: Admin: 10/27/25 21:23 Dose: 999 mls/hr Documented By: JOE Lidocaine HCl (Lidocaine 2% Gel Urojet 10 Ml Pkg) Confirm Administered Dose 10 ml .ROUTE .STK-MED ONE Stop: 10/27/25 18:20 Last Admin: 10/27/25 18:26 Dose: Not Given Documented By: WELLINGTON Non-Admin Reason: No Dose Required Morphine Sulfate (Morphine Sulfate (*Crx) 4 Mg/Ml Inj) 2 mg IV PUSH Q4H PRN PRN Reason: Pain Rated 7-10 Last Admin: 10/27/25 19:04 Dose: 2 mg Documented By: SHARMIN Ondansetron HCl (Ondansetron Inj 4 Mg/2 Ml Vial) 4 mg IV PUSH ONCE STA Stop: 10/27/25 18:35 Last Admin: 10/27/25 19:04 Dose: 4 mg Documented By: SHARMIN Interventions/Assessments Cardiac Monitoring Start: 10/27/25 17:23 Freq: Status: Active Protocol: Document 10/27/25 18:23 WELLINGTON (Rec: 10/27/25 18:23 WELLINGTON [id number]) Care Trainer Assessment Care Trainer Yes Applied Pulse Rate (60-100 92 beats/min) EKG Rythm Paced-Implanted IV / Saline Lock, Insert Start: 10/27/25 17:23 Freq: Status: Active Protocol: Document 10/27/25 17:42 MCO (Rec: 10/27/25 17:42 MCO [id number]) IV Assessment Peripheral Access Right Antecubital IV Catheter Access Initiated Before Arrival IV Insertion Date 10/27/25 Catheter Gauge 18 IV Site Assessment WNL IV Care and WNL Maintenance IV / Saline Lock, Insert Start: 10/27/25 17:48 Freq: STAT Status: Active Protocol: Document 10/27/25 17:48 MCO (Rec: 10/27/25 17:49 MCO [id number]) IV Assessment Peripheral Access Right Antecubital IV Catheter Access Initiated Before Arrival IV Insertion Date 10/27/25 Catheter Gauge 18 IV Site Assessment WNL IV Care and WNL Maintenance PA: Cardiovascular Assessment Start: 10/27/25 17:23 Freq: Status: Active Protocol: Document 10/27/25 17:40 MCO (Rec: 10/27/25 17:41 MCO [id number]) Cardiovascular Assessment Cardiovascular None Symptoms Skin Description Cool Heart Sounds Normal Jugular Vein None Distention PA: Neurological Assessment Start: 10/27/25 17:23 Freq: Status: Active Protocol: Document 10/27/25 17:40 MCO (Rec: 10/27/25 17:41 MCO [id number]) Neurological Assessment Level of Drowsy,Sleeping Consciousness Arousable to Verbal Orientation Unable to Assess Neurological Frequent Falls,Weakness, General Symptoms Behavior Appropriate,Cooperative [place] Coma Scale Eyes To Voice Verbal Moans, Unintelligible Motor Withdraws to Pain Jacklyn Coma Total 9 Score PA: Respiratory Assessment Start: 10/27/25 17:23 Freq: Status: Active Protocol: Document 10/27/25 17:40 MCO (Rec: 10/27/25 17:41 MCO [id number]) Respiratory Assessment Symptoms None Effort Normal Oxygen Delivery Oxygen Delivery Room Air Last Vital Signs Temperature 98.7 F 10/27/25 20:28 Pulse Rate 88 10/27/25 23:01 Respiratory Rate 20 10/27/25 23:01 Pulse Oximetry 97 10/27/25 20:28 Blood Pressure 128/56 L 10/27/25 23:01 Blood Pressure Mean 80 10/27/25 23:01 Blood Pressure Position Supine 10/27/25 17:23 Oxygen Delivery Room Air 10/27/25 17:40 Weight 82.6 kg 10/27/25 17:23 Last Result - Abnormals Only WBC 11.1 K/mm3 (4.5-10.0) H 10/27/25 18:49 RBC 4.59 M/mm3 (4.6-6.20) L 10/27/25 18:49 Hgb 13.2 g/dL (14.0-18.0) L 10/27/25 18:49 Hct 40.3 % (42.0-52.0) L 10/27/25 18:49 MPV 11.3 fl (7.4-10.4) H 10/27/25 18:49 Neut % (Auto) 74.9 % (45.5-73.1) H 10/27/25 18:49 Lymph % (Auto) 12.7 % (18.3-44.2) L 10/27/25 18:49 [place] % (Auto) 11.4 % (2.6-8.5) H 10/27/25 18:49 [place] # (Auto) 1.3 K/mm3 (0.1-0.6) H 10/27/25 18:49 Absolute Neuts (auto) 8.3 K/mm3 (1.3-6.7) H 10/27/25 18:49 PT 15.4 Seconds (11.1-14.7) H 10/27/25 18:49 ABG pO2 63.7 mmHg (80.0-100.0) L 10/27/25 18:26 ABG HCO3 27.1 mEq/l (22.0-26.0) H 10/27/25 18:26 ABG O2 Saturation 93.1 % (95.0-100.0) L 10/27/25 18:26 Sodium 151 mmol/L (137-145) H 10/27/25 18:49 Chloride 116 mmol/L (98-107) H 10/27/25 18:49 BUN 41 mg/dL (9-20) H D 10/27/25 18:49 Creatinine 1.50 mg/dL (0.7-1.3) H 10/27/25 18:49 Estimated GFR 45 (59-) L 10/27/25 18:49 Glucose 147 mg/dL (65-110) H 10/27/25 18:49 Alkaline Phosphatase 137 U/L (38-126) H 10/27/25 18:49 Ur Blood (Man) 2+ (Negative) H 10/27/25 18:23 Urine RBC 21-50 /hpf (0-2) H 10/27/25 18:23
[2025-10-27] MEDS: SODIUM CHLORIDE 0.9% IV 1,000 ML 100 ML IV CONT (23:46)
[2025-10-28 00:21] VITALS: BP 109/63; PULSE 73; TEMP 36.6; O2SAT 98
--- NOTE | 2025-10-28 00:36 | ADMGEN ---
This patient, Romel Norris, was admitted to Medical Room 257-01. Patient/family oriented to hospital policies and general routines including ID bracelet, bed and alarms, visiting hours, pain management, procedures, bathroom and other care routines, personal items, smoking policy, room service/diet, and visiting hours. Information on how to activate the Rapid Response Team has been discussed. Patient/Family are encouraged to report perceived risks to care and to ask questions if they do not understand what they are told or what they should do.
[2025-10-28 01:04] VITALS: PULSE 73; RESP 20; O2SAT 98
[2025-10-28 04:07] VITALS: BP 125/68; PULSE 94; RESP 18; TEMP 36.7; O2SAT 100
--- NOTE | 2025-10-28 06:11 | PM.IMHP2 ---
H&P: HPI History of Present Illness Date/Time: 10/28/25 06:11 Chief Complaint: Increased confusion and lethargy Narrative: 84-year-old male with a past medical history of dementia with behaviors, depression, essential hypertension, systolic heart failure and coronary disease who presented to the ER via EMS from [facility] assisted living due to increased confusion and lethargy. Per prison staff the patient is usually ambulatory with a cane but has not been able to get out of bed or move around today. He had been evaluated in the ER on the following a fall and diagnosed with a mildly comminuted right superior medial orbital rim fracture with fracture extending into the lamina papyracea. He was discharged back to assisted living on Tylenol within ever to avoid narcotics due to history of oxycodone allergy. The patient's brother told ER staff that the patient had decreased oral intake and had not been himself since returning to the prison. The patient's brother brother, who lives in [place], told ER staff the patient is supposed to go to [place] on November 16 for surgical repair of the orbital fracture. Patient had extensive evaluation in the ER today including CT of the chest abdomen pelvis, facial TT and CT of the head although which demonstrated no acute process. In fact CT of the orbital structures stated no fracture. However patient's BMP did demonstrate acute hypernatremia and acute kidney injury. The patient received Zofran, morphine and 1 L of IV fluid bolus in the ER. The patient had been restless on initial presentation the ER but calmed after pain medications. The ER provider contacted the patient's brother and discussed the patient's recent clinical course and affect the patient has goals of care with state form on chart requesting comfort based care only. After this discussion the patient's brother requested her referral for possible hospice placement. He told the ER provider that they have a family friend who is a physician in the area who will come and see the patient around 10:00 and will help provide further direction. The patient was started on IV fluids to see if improvement in his hydration status would improve his mentation. At the time my evaluation the patient is alert but does not directly respond to his name and does not follow commands. He does gaze around the room and moans nonspecific responses. Review of Systems Review of Systems: Review of systems unobtainable due to patient's mentation/dementia [facility] Past Medical History Medical History (Updated 10/28/25 @ 06:40 by Jaki Castaneda DO) Dementia Essential hypertension Coronary artery disease Systolic heart failure Aneurysm of ascending aorta Surgical History Surgical History (Updated 10/28/25 @ 06:27 by Jaki Castaneda DO) Surgical history unknown Family History Family History (Updated 10/28/25 @ 06:27 by Jaki Castaneda DO) Other Unknown family medical history Social History Social History (Updated 10/28/25 @ 06:29 by Jaki Castaneda DO) Social History: Code status: DNR/DNI Healthcare power of personal injury attorney: Jackson (brother) Smoking status: Unknown if ever smoked Alcohol intake: unknown Substance use: unknown Spiritual care concerns: Yes Meds Home Medications and Allergies Home Medications ?Medication ?Instructions ?Recorded ?Confirmed ?Type albuterol sulfate 90 mcg/actuation 2 puff inhalation BID Shortness of 10/28/25 10/28/25 History aerosol inhaler breath amlodipine 2.5 mg tablet 2.5 mg PO QAM Hypertension 10/28/25 10/28/25 History escitalopram oxalate 20 mg tablet 20 mg PO DAILY Depression 10/28/25 10/28/25 History furosemide 40 mg tablet 40 mg PO QAM Edema 10/28/25 10/28/25 History haloperidol lactate 5 mg/mL 2 mg IM Q8H PRN agitation 10/28/25 10/28/25 History injection solution hydrocodone 5 mg-acetaminophen 325 1 tablet PO Q4H Bilateral knee pain 10/28/25 10/28/25 History mg tablet lorazepam 0.5 mg tablet 0.5 mg PO Q12H PRN Anxiety 10/28/25 10/28/25 History lorazepam 1 mg tablet 1 mg PO Q24H PRN agitation 10/28/25 10/28/25 History losartan 100 mg tablet 100 mg PO HS Hypertension 10/28/25 10/28/25 History metoprolol succinate 25 mg 12.5 mg PO QAM Hypertension 10/28/25 10/28/25 History tablet,extended release 24 hr mirtazapine 7.5 mg tablet 7.5 mg PO HS Behavior 10/28/25 10/28/25 History mupirocin 2 % topical ointment 1 applic topical BID PRN Bilateral 10/28/25 10/28/25 History knee swelling quetiapine 50 mg tablet 50 mg PO TID Dementia, behavioral 10/28/25 10/28/25 History disturbances Allergies Allergy/AdvReac Type Severity Reaction Status Date / Time levofloxacin (From Levaquin) Allergy Unknown Verified 10/28/25 00:38 metoprolol Allergy Unknown Verified 10/28/25 00:38 oxycodone (From OxyContin) Allergy Unknown Verified 10/28/25 00:38 Vital Signs Vital Signs - 24 hr 10/27/25 17:23 10/27/25 17:40 10/27/25 18:22 Temperature 99 F Pulse Rate 97 92 Respiratory Rate 26 H 16 Blood Pressure 127/51 L 131/70 Pulse Oximetry 96 97 Oxygen Delivery Room Air Room Air Fraction of Inspired Oxygen 10/27/25 18:23 10/27/25 18:31 10/27/25 18:47 Temperature Pulse Rate 92 94 94 Respiratory Rate 21 H 17 Blood Pressure Pulse Oximetry Oxygen Delivery Fraction of Inspired Oxygen 10/27/25 20:28 10/27/25 23:01 10/28/25 00:21 Temperature 98.7 F 97.8 F Pulse Rate 90 88 73 Respiratory Rate 16 20 Blood Pressure 140/96 H 128/56 L 109/63 Pulse Oximetry 97 98 Oxygen Delivery Fraction of Inspired Oxygen 10/28/25 01:04 10/28/25 04:07 Temperature 98.0 F Pulse Rate 73 94 Respiratory Rate 20 18 Blood Pressure 125/68 Pulse Oximetry 98 100 Oxygen Delivery Fraction of Inspired Oxygen 2 Exam Narrative: Weight 80.5 kg BMI 34.7 Const: Other: Mildly ill-appearing, restless and moaning, overweight HENMT: Other: Mucous membranes are dry, right periorbital bruising, no oral pharyngeal erythema Eyes: Other: Right periorbital bruising, pupils are equal and reactive, mildly injected sclera bilateral, no scleral icterus Neck: Other: No JVD, no lymphadenopathy Resp: Other: Clear to auscultation bilaterally, no increased work of breathing Cardio: Other: Regular rate, 2+ bilateral radial pedal pulses, no murmur, no JVD GI: Other: Soft, nontender, nondistended, positive bowel sounds : Other: Incontinent of urine Skin: Other: No jaundice, no pallor Neuro: Other: Alert, patient does follow movement of providers around the room but does not provide meaningful responses and does not follow commands Extrem: Other: No cyanosis, no edema, 4-5 second cap refill Psych: Other: Confused, calm Results Labs Labs: Laboratory Tests 10/27/25 18:49 10/27/25 18:49 10/27/25 10/27/25 10/27/25 18:23 18:26 18:49 WBC 11.1 H RBC 4.59 L Hgb 13.2 L Hct 40.3 L MCV 87.8 MCH 28.8 MCHC 32.8 RDW 13.3 Plt Count 265 MPV 11.3 H Immature Gran % (Auto) 0.3 Neut % (Auto) 74.9 H Lymph % (Auto) 12.7 L Bucks % (Auto) 11.4 H Eos % (Auto) 0.5 Baso % (Auto) 0.2 Lymph # (Auto) 1.41 Bucks # (Auto) 1.3 H Eos # (Auto) 0.1 Baso # (Auto) 0.0 Abs Immat Gran (auto) 0.03 Absolute Neuts (auto) 8.3 H Absolute Nucleated RBC 0.000 Nucleated RBC % 0.0 PT 15.4 H INR 1.2 APTT 28.0 Puncture Site Right brachial ABG pH 7.438 ABG pCO2 41.0 ABG pO2 63.7 L ABG PO2/FiO2 Ratio 3.03 ABG HCO3 27.1 H ABG O2 Saturation 93.1 L ABG O2 Content 18.2 ABG Base Excess 2.7 A-a Gradient 36.9 Oxyhemoglobin 91.1 Total Hemoglobin 14.2 O2 Delivery Device Room air O2 Liters/Min Not Reportable FiO2 21 Sodium 151 H Potassium 3.7 Chloride 116 H Carbon Dioxide 27 Anion Gap 8 BUN 41 H D Creatinine 1.50 H Estim Creat Clear Calc 34 Estimated GFR 45 L Glucose 147 H Lactic Acid 0.8 Calcium 9.4 Total Bilirubin 1.0 AST 36 ALT 31 Alkaline Phosphatase 137 H Total Creatine Kinase 163 Total Protein 7.0 Albumin 3.8 Urine Color Yellow Urine Appearance Clear Urine pH 5.0 Ur Specific [place] 1.013 Urine Protein Negative Urine Glucose (UA) Negative Urine Ketones Negative Ur Blood (Man) 2+ H Urine Nitrate Negative Urine Bilirubin Negative Urine Urobilinogen 1.0 Add Ur Microanalysis Reviewed Leukocyte Esterase Rfl Negative Urine RBC 21-50 H Urine WBC 0-5 Ur Squamous Epith Cells None seen Urine Bacteria None seen Urine Casts 0-2 EKG interpretation from prior hospitalization and this hospitalization all indicate atrial sensed ventricular pacemaker however no pacemaker is visualized on my review of imaging. Impressions Head CT 10/27/25 19:35 IMPRESSION: No acute intracranial hemorrhage or extra axial fluid collections. Chronic white matter microangiopathic changes. All CT scans at this facility are performed using low dose modulation techniques as appropriate to perform exam including the following: automated exposure control; use of iterative reconstruction technique; adjustment of the mA and/or kV according to patient size (this includes techniques or standardized protocols for targeted exams where dose is matched to indication/reason for exam). Chest/Abdomen/Pelvis/Spine CT 10/27/25 19:42 IMPRESSION: No acute cardiopulmonary process. Aneurysmal dilatation of the ascending aorta measuring 4.2 cm. No pathologic enhancement is noted. No pathologically enlarged mediastinal lymphadenopathy is noted. CT abdomen and pelvis with contrast: The liver parenchyma is unremarkable. No intrahepatic mass or ductal dilatation is evident. The gallbladder is unremarkable. The pancreas and spleen are normal in appearance. The adrenal glands are symmetric in size. The kidneys demonstrate symmetric uptake and excretion of contrast. No cystic mass is evident. There is no solid mass. There is no hydronephrosis. Evaluation of the stomach and bowel loops are limited due to lack of oral contrast. Fat-containing inguinal hernias are noted bilaterally. The bladder and rectum are normal. No free intraperitoneal fluid or air is evident. There is no significant retroperitoneal lymphadenopathy. The aorta, visceral vessels and renal arteries demonstrate normal caliber and patency. The lower thoracic and lumbar vertebrae are in normal alignment. IMPRESSION: No acute abnormality is noted in the abdomen and pelvis. CT thoracic spine: [There is normal alignment of the thoracic vertebrae.] [No thoracic compression fracture is evident.] [There is no prevertebral soft tissue swelling.] Generative changes with disc space narrowing are noted. [There is no high-grade spinal canal stenosis or foraminal narrowing.] IMPRESSION: 1. [No thoracic compression fracture or prevertebral soft tissue swelling is evident.] 2. [There are no significant degenerative changes.] 3. [No high-grade spinal canal stenosis or foraminal narrowing is evident.] CT lumbar spine: FINDINGS: The axial images demonstrate no acute fracture or paravertebral soft tissue swelling. Degenerative changes with disc bulging and uncovertebral hypertrophy are noted. IMPRESSION: No acute fracture or subluxation. Face CT 10/27/25 20:07 IMPRESSION: Normal CT of the face without contrast. All CT scans at this facility are performed using low dose modulation techniques as appropriate to perform exam including the following: automated exposure control; use of iterative reconstruction technique; adjustment of the mA and/or kV according to patient size (this includes techniques or standardized protocols for targeted exams where dose is matched to indication/reason for exam). Chest X-Ray 10/27/25 20:32 IMPRESSION: No acute pulmonary findings. Attestation: I personally reviewed all lab results Quality If No VTE Prophylaxis Answer both mechanical and pharmacologic: Reason no mechanical VTE proph: medical contraindication (Comfort care) Reason no pharmacologic proph: medical contraindication active bleeding/bleeding risk Assessment and Plan Assessment and plan (1) Acute hypernatremia: Code(s): E87.0 - Hyperosmolality and hypernatremia Status: Acute (2) JACKLYN (acute kidney injury): Code(s): N17.9 - Acute kidney failure, unspecified Status: Acute (3) Head injury due to trauma: Qualifiers: Encounter type: subsequent encounter Qualified Code(s): S09.90XD - Unspecified injury of head, subsequent encounter Code(s): S09.90XA - Unspecified injury of head, initial encounter Status: Inactive (4) Dementia: Qualifiers: Dementia type: unspecified type Dementia severity: severe Dementia behavioral or psychological symptom: with other behavioral disturbance Qualified Code(s): F03.C18 - Unspecified dementia, severe, with other behavioral disturbance Code(s): F03.90 - Unspecified dementia, unspecified severity, without behavioral disturbance, psychotic disturbance, mood disturbance, and anxiety Status: Acute Plan Patient has increasing lethargy in decreased oral intake due to a combination of dementia in exacerbated by recent fall in likely component of pain. Patient has acute kidney injury with associated hyperosmolar hypernatremia. Patient was given a trial of IV fluids to see if this would help with the patient's medication but mentation still is altered in the patient is lying there moaning and does not follow commands. Care coordination consult has been placed for planned hospice referral. Will repeat electrolyte panel to see if there has been any improvement in the patient's creatinine or sodium. Will hold patient's home diuretic therapy and angiotensin receptor cruz. The patient does seem to be uncomfortable and in pain p.r.n. morphine has been ordered. The patient's home [facility] is currently on hold. Will continue lorazepam, Seroquel and Remeron. Patient has been admitted as observation status. Prior Studies I have reviewed the following patient records and this information was taken into consideration when formulating the assessment and plan.: previous labs and previous ER visits Consultations Consultations: I have discussed the care of this pt with the consulting providers. Hospitalist [facility] Advance Care Plan I have confirmed that the patient's Advanced Care Plan is present, code status is documented, or surrogate decision maker is listed in patient medical record.: Yes Medication Reconciliation I have utilized all available resources to obtain, update and review the patients current medications (includes all prescriptions, OTC, herbals, cannabis, and nutritional supplements).: Yes
[2025-10-28 07:14] LABS: Hematocrit 39.2 % (42.0-52.0); Hemoglobin 12.4 g/dL (14.0-18.0); Mean Corpuscular HGB Conc 31.6 g/dl (32-36); Mean Corpuscular Hemoglobin 28.6 pg (26-34); Mean Corpuscular Volume 90.5 fl (80-100); Platelet Count Result 230 k/mm3 (150-375); Red Blood Count 4.33 M/mm3 (4.6-6.20); White Blood Count 8.2 K/mm3 (4.5-10.0)
[2025-10-28 07:34] LABS: Anion Gap 6 mmol/L (4-12); Blood Urea Nitrogen 42 mg/dL (9-20); Calcium 8.7 mg/dL (8.4-10.2); Carbon Dioxide 28 mmol/L (22-30); Chloride 118 mmol/L (98-107); Estimated CRCL calculation 33 ml/min; Estimated Glomerular Filt Rate 51; Glucose 112 mg/dL (65-110); Potassium 4.0 mmol/L (3.4-5.0); Sodium 152 mmol/L (137-145)
--- NOTE | 2025-10-28 07:58 | P.PNIM_ITS ---
Assessment and Plan Assessment and Plan (1) Dementia: Qualifiers: Dementia behavioral or psychological symptom: with other behavioral disturbance Dementia severity: severe Dementia type: unspecified type Qualified Code(s): F03.C18 - Unspecified dementia, severe, with other behavioral disturbance Code(s): F03.90 - Unspecified dementia, unspecified severity, without behavioral disturbance, psychotic disturbance, mood disturbance, and anxiety Status: Acute Assessment and Plan: Increasing lethargy and decreased oral intake due to a combination of dementia in exacerbated by recent fall in likely component of pain * Continue lorazepam, Seroquel and Remeron * Care coordination consult for planned hospice referral * Day has examined the patient - has been approved for GIP * pain p.r.n. morphine * Pending patient's brother's approval (2) Acute hypernatremia: Code(s): E87.0 - Hyperosmolality and hypernatremia Status: Acute Assessment and Plan: * Upon admission: Na 151 * Likely 2/2 dehydration * Continue IVFs * Monitor daily labs (3) JACKLYN (acute kidney injury): Code(s): N17.9 - Acute kidney failure, unspecified Status: Acute Assessment and Plan: * Creatinine: 1.5, GFR: 45, BUN: 41 * IV Fluids: NS @ 100ml/hr * Trend renal function * Trend electrolytes, correct as needed Subjective Date/time seen: 10/28/25 07:58 Interval history: 84-year-old male with a past medical history of dementia with behaviors, depression, HTN , systolic HF and CAD who presented to the ER from [facility] due to increased confusion and lethargy. 10/28/2025 Patient sitting in bed at time of examination. Prescreen has been consulted and we are waiting on approval from patient's brother but at this moment the patient has been approved for GIP. Review of Systems Review of Systems: Review of systems unobtainable due to patient's mentation/dementia Exam Narrative: Weight 80.5 kg BMI 34.7 Const: Other: Mildly ill-appearing, restless and moaning, overweight HENMT: Other: Mucous membranes are dry, right periorbital bruising, no oral pharyngeal er ythema Eyes: Other: Right periorbital bruising, pupils are equal and reactive, mildly injected sclera bilateral, no scleral icterus Neck: Other: No JVD, no lymphadenopathy Resp: Other: Clear to auscultation bilaterally, no increased work of breathing Cardio: Other: Regular rate, 2+ bilateral radial pedal pulses, no murmur, no JVD GI: Other: Soft, nontender, nondistended, positive bowel sounds : Other: Incontinent of urine Skin: Other: No jaundice, no pallor Neuro: Other: Alert, patient does follow movement of providers around the room but does not provide meaningful responses and does not follow commands Extrem: Other: No cyanosis, no edema, 4-5 second cap refill Psych: Other: Confused, calm Objective Data Vital Signs Vital Signs: Vital Signs - 24 hr 10/27/25 17:23 10/27/25 17:40 10/27/25 18:22 Temperature 99 F Pulse Rate 97 92 Respiratory Rate 26 H 16 Blood Pressure 127/51 L 131/70 Pulse Oximetry 96 97 Oxygen Delivery Room Air Room Air Fraction of Inspired Oxygen 10/27/25 18:23 10/27/25 18:31 10/27/25 18:47 Temperature Pulse Rate 92 94 94 Respiratory Rate 21 H 17 Blood Pressure Pulse Oximetry Oxygen Delivery Fraction of Inspired Oxygen 10/27/25 20:28 10/27/25 23:01 10/28/25 00:21 Temperature 98.7 F 97.8 F Pulse Rate 90 88 73 Respiratory Rate 16 20 Blood Pressure 140/96 H 128/56 L 109/63 Pulse Oximetry 97 98 Oxygen Delivery Fraction of Inspired Oxygen 10/28/25 01:04 10/28/25 04:07 Temperature 98.0 F Pulse Rate 73 94 Respiratory Rate 20 18 Blood Pressure 125/68 Pulse Oximetry 98 100 Oxygen Delivery Fraction of Inspired Oxygen 2 Intake/Output Intake/Output: Intake & Output 10/25/25 10/26/25 10/27/25 10/28/25 23:59 23:59 23:59 23:59 Intake Total 1000 0 Output Total 30 200 Balance 970 -200 Meds/Results Medications: Active Medications Generic Name Dose Route Start Last Admin Trade Name Freq PRN Reason Stop Dose Admin Acetaminophen 650 mg 10/27/25 21:50 Acetaminophen 325 Mg Tablet PO Q4H PRN Mild Pain (1-3) or Fever Haloperidol Lactate 2 mg 10/28/25 06:40 Haloperidol Lactate 5 Mg/Ml Vial IM Q8H PRN Agitation Sodium Chloride 1,000 mls @ 100 mls/hr 10/27/25 21:50 10/27/25 23:46 Normal Saline Iv IV CONT 100 mls/hr .Q10H SERGE Administration Lorazepam 0.5 mg 10/28/25 06:40 Lorazepam (*Crx) 0.5 Mg Tablet PO Q12H PRN Anxiety Mirtazapine 7.5 mg 10/28/25 21:00 Mirtazapine 7.5 Mg Tablet PO HS SERGE Morphine Sulfate 2 mg 10/27/25 21:50 Morphine Sulfate (*Crx) 4 Mg/Ml Inj IV PUSH Q4H PRN Pain Rated 7-10 Ondansetron HCl 4 mg 10/27/25 21:50 Ondansetron Inj 4 Mg/2 Ml Vial IV PUSH Q4H PRN Nausea Quetiapine Fumarate 50 mg 10/28/25 06:45 Quetiapine Fumarate 25 Mg Tablet PO Q8HR [facility] Radiology Results: ITS Impressions Head CT 10/27/25 19:35 IMPRESSION: No acute intracranial hemorrhage or extra axial fluid collections. Chronic white matter microangiopathic changes. All CT scans at this facility are performed using low dose modulation techniques as appropriate to perform exam including the following: automated exposure control; use of iterative reconstruction technique; adjustment of the mA and/or kV according to patient size (this includes techniques or standardized protocols for targeted exams where dose is matched to indication/reason for exam). Chest/Abdomen/Pelvis/Spine CT 10/27/25 19:42 IMPRESSION: No acute cardiopulmonary process. Aneurysmal dilatation of the ascending aorta measuring 4.2 cm. No pathologic enhancement is noted. No pathologically enlarged mediastinal lymphadenopathy is noted. CT abdomen and pelvis with contrast: The liver parenchyma is unremarkable. No intrahepatic mass or ductal dilatation is evident. The gallbladder is unremarkable. The pancreas and spleen are normal in appearance. The adrenal glands are symmetric in size. The kidneys demonstrate symmetric uptake and excretion of contrast. No cystic mass is evident. There is no solid mass. There is no hydronephrosis. Evaluation of the stomach and bowel loops are limited due to lack of oral contrast. Fat-containing inguinal hernias are noted bilaterally. The bladder and rectum are normal. No free intraperitoneal fluid or air is evident. There is no significant retroperitoneal lymphadenopathy. The aorta, visceral vessels and renal arteries demonstrate normal caliber and patency. The lower thoracic and lumbar vertebrae are in normal alignment. IMPRESSION: No acute abnormality is noted in the abdomen and pelvis. CT thoracic spine: [There is normal alignment of the thoracic vertebrae.] [No thoracic compression fracture is evident.] [There is no prevertebral soft tissue swelling.] Generative changes with disc space narrowing are noted. [There is no high-grade spinal canal stenosis or foraminal narrowing.] IMPRESSION: 1. [No thoracic compression fracture or prevertebral soft tissue swelling is evident.] 2. [There are no significant degenerative changes.] 3. [No high-grade spinal canal stenosis or foraminal narrowing is evident.] CT lumbar spine: FINDINGS: The axial images demonstrate no acute fracture or paravertebral soft tissue swelling. Degenerative changes with disc bulging and uncovertebral hypertrophy are noted. IMPRESSION: No acute fracture or subluxation. All CT scans at this facility are performed using low dose modulation techniques as appropriate to perform exam including the following: automated exposure control; use of iterative reconstruction technique; adjustment of the mA and/or kV according to patient size (this includes techniques or standardized protocols for targeted exams where dose is matched to indication/reason for exam) Face CT 10/27/25 20:07 IMPRESSION: Normal CT of the face without contrast. All CT scans at this facility are performed using low dose modulation techniques as appropriate to perform exam including the following: automated exposure control; use of iterative reconstruction technique; adjustment of the mA and/or kV according to patient size (this includes techniques or standardized protocols for targeted exams where dose is matched to indication/reason for exam). Chest X-Ray 10/27/25 20:32 IMPRESSION: No acute pulmonary findings. Labs Labs: Laboratory Results - last 24 hr 10/27/25 10/27/25 10/27/25 18:23 18:26 18:49 WBC 11.1 H RBC 4.59 L Hgb 13.2 L Hct 40.3 L MCV 87.8 MCH 28.8 MCHC 32.8 RDW 13.3 Plt Count 265 MPV 11.3 H Immature Gran % (Auto) 0.3 Neut % (Auto) 74.9 H Lymph % (Auto) 12.7 L [place] % (Auto) 11.4 H Eos % (Auto) 0.5 Baso % (Auto) 0.2 Lymph # (Auto) 1.41 Wright # (Auto) 1.3 H Eos # (Auto) 0.1 Baso # (Auto) 0.0 Abs Immat Gran (auto) 0.03 Absolute Neuts (auto) 8.3 H Absolute Nucleated RBC 0.000 Nucleated RBC % 0.0 PT 15.4 H INR 1.2 APTT 28.0 Puncture Site Right brachial ABG pH 7.438 ABG pCO2 41.0 ABG pO2 63.7 L ABG PO2/FiO2 Ratio 3.03 ABG HCO3 27.1 H ABG O2 Saturation 93.1 L ABG O2 Content 18.2 ABG Base Excess 2.7 A-a Gradient 36.9 Oxyhemoglobin 91.1 Total Hemoglobin 14.2 O2 Delivery Device Room air O2 Liters/Min Not Reportable FiO2 21 Sodium 151 H Potassium 3.7 Chloride 116 H Carbon Dioxide 27 Anion Gap 8 BUN 41 H D Creatinine 1.50 H Estim Creat Clear Calc 34 Estimated GFR 45 L Glucose 147 H Lactic Acid 0.8 Calcium 9.4 Total Bilirubin 1.0 AST 36 ALT 31 Alkaline Phosphatase 137 H Total Creatine Kinase 163 Total Protein 7.0 Albumin 3.8 Urine Color Yellow Urine Appearance Clear Urine pH 5.0 Ur Specific [place] 1.013 Urine Protein Negative Urine Glucose (UA) Negative Urine Ketones Negative Ur Blood (Man) 2+ H Urine Nitrate Negative Urine Bilirubin Negative Urine Urobilinogen 1.0 Add Ur Microanalysis Reviewed Leukocyte Esterase Rfl Negative Urine RBC 21-50 H Urine WBC 0-5 Ur Squamous Epith Cells None seen Urine Bacteria None seen Urine Casts 0-2 10/28/25 07:10 WBC 8.2 RBC 4.33 L Hgb 12.4 L Hct 39.2 L MCV 90.5 MCH 28.6 MCHC 31.6 L RDW 13.3 Plt Count 230 MPV 11.1 H Immature Gran % (Auto) Neut % (Auto) Lymph % (Auto) [place] % (Auto) Eos % (Auto) Baso % (Auto) Lymph # (Auto) [place] # (Auto) Eos # (Auto) Baso # (Auto) Abs Immat Gran (auto) Absolute Neuts (auto) Absolute Nucleated RBC Nucleated RBC % PT INR APTT Puncture Site ABG pH ABG pCO2 ABG pO2 ABG PO2/FiO2 Ratio ABG HCO3 ABG O2 Saturation ABG O2 Content ABG Base Excess A-a Gradient Oxyhemoglobin Total Hemoglobin O2 Delivery Device O2 Liters/Min FiO2 Sodium 152 H Potassium 4.0 Chloride 118 H Carbon Dioxide 28 Anion Gap 6 BUN 42 H Creatinine 1.33 H Estim Creat Clear Calc 33 Estimated GFR 51 L Glucose 112 H Lactic Acid Calcium 8.7 Total Bilirubin AST ALT Alkaline Phosphatase Total Creatine Kinase Total Protein Albumin Urine Color Urine Appearance Urine pH Ur Specific [place] Urine Protein Urine Glucose (UA) Urine Ketones Ur Blood (Man) Urine Nitrate Urine Bilirubin Urine Urobilinogen Add Ur Microanalysis Leukocyte Esterase Rfl Urine RBC Urine WBC Ur Squamous Epith Cells Urine Bacteria Urine Casts
[2025-10-28] MEDS: SODIUM CHLORIDE 0.9% IV 1,000 ML 100 ML IV CONT (10:48)
[2025-10-28 13:59] VITALS: BP 128/62; PULSE 103; RESP 24; TEMP 38.8; O2SAT 95
--- NOTE | 2025-10-28 16:08 | P.DS_ITS ---
DS: Admitting Diagnosis Discharge Date 10/28/2025 Admitting Diagnosis Dementia, Acute hypernatremia DS: Discharge Diagnosis Discharge Diagnosis (1) Dementia: Qualifiers: Dementia behavioral or psychological symptom: with other behavioral disturbance Dementia severity: severe Dementia type: unspecified type Qualified Code(s): F03.C18 - Unspecified dementia, severe, with other behavioral disturbance Code(s): F03.90 - Unspecified dementia, unspecified severity, without behavioral disturbance, psychotic disturbance, mood disturbance, and anxiety Status: Acute (2) Acute hypernatremia: Code(s): E87.0 - Hyperosmolality and hypernatremia Status: Acute (3) JACKLYN (acute kidney injury): Code(s): N17.9 - Acute kidney failure, unspecified Status: Acute DS: Summary Hospital Course Reason for hospitalization: Increased confusion and lethargy Hospital Course: The patient is an 84-year-old male with advanced dementia with behavioral disturbance, depression, hypertension, systolic heart failure, and coronary artery disease who was admitted from assisted living for acute encephalopathy manifested by increased confusion, lethargy, and decreased oral intake following a recent fall with reported right orbital fracture. On presentation, he was nonverbal, intermittently moaning, and unable to follow commands. Extensive evaluation including CT head, face, chest, abdomen, pelvis, and spine revealed no acute traumatic or intracranial process, and the previously reported orbital fracture was not visualized. Laboratory studies were notable for acute hypernatremia (Na 151?152) and acute kidney injury (Cr up to 1.5, BUN 41?42), felt to be secondary to dehydration and poor intake. He was treated with intravenous fluids with slight improvement in renal function but persistent hypernatremia and no meaningful improvement in mentation. Given his advanced dementia, functional decline, poor oral intake, and goals of care reflecting comfort-focused treatment (DNR/DNI), care coordination and hospice were consulted. The patient was approved for inpatient hospice ([facility]) through [employer], pending final family consent. Symptom management focused on comfort, including PRN morphine for pain and continuation of baseline psychotropic medications, while nonessential medications such as diuretics and ARB were held. He remained hemodynamically stable but profoundly encephalopathic, and the overall plan transitioned toward hospice-level, comfort-based care. Time Spent with Patient Time attestation: Total time spent providing and/or coordinating discharge services: 25 Exam Narrative: Weight 80.5 kg BMI 34.7 Const: Other: Mildly ill-appearing, restless and moaning, overweight HENMT: Other: Mucous membranes are dry, right periorbital bruising, no oral pharyngeal erythema Eyes: Other: Right periorbital bruising, pupils are equal and reactive, mildly injected scler a bilateral, no scleral icterus Neck: Other: No JVD, no lymphadenopathy Resp: Other: Clear to auscultation bilaterally, no increased work of breathing Cardio: Other: Regular rate, 2+ bilateral radial pedal pulses, no murmur, no JVD GI: Other: Soft, nontender, nondistended, positive bowel sounds : Other: Incontinent of urine Skin: Other: No jaundice, no pallor Neuro: Other: Alert, patient does follow movement of providers around the room but does not provide meaningful responses and does not follow commands Extrem: Other: No cyanosis, no edema, 4-5 second cap refill Psych: Other: Confused, calm DS: Data Data Completed and Pending Labs on day of discharge: Labs from last 24 hours 10/28/25 10/27/25 10/27/25 07:10 18:49 18:26 WBC 8.2 11.1 H RBC 4.33 L 4.59 L Hgb 12.4 L 13.2 L Hct 39.2 L 40.3 L MCV 90.5 87.8 MCH 28.6 28.8 MCHC 31.6 L 32.8 RDW 13.3 13.3 Plt Count 230 265 MPV 11.1 H 11.3 H Immature Gran % (Auto) 0.3 Neut % (Auto) 74.9 H Lymph % (Auto) 12.[address] [place] % (Auto) 11.4 H Eos % (Auto) 0.5 Baso % (Auto) 0.2 Lymph # (Auto) 1.41 [place] # (Auto) 1.3 H Eos # (Auto) 0.1 Baso # (Auto) 0.0 Abs Immat Gran (auto) 0.03 Absolute Neuts (auto) 8.3 H Absolute Nucleated RBC 0.000 Nucleated RBC % 0.0 PT 15.4 H INR 1.2 APTT 28.0 Puncture Site Right brachial ABG pH 7.438 ABG pCO2 41.0 ABG pO2 63.7 L ABG PO2/FiO2 Ratio 3.03 ABG HCO3 27.1 H ABG O2 Saturation 93.1 L ABG O2 Content 18.2 ABG Base Excess 2.7 A-a Gradient 36.9 Oxyhemoglobin 91.1 Total Hemoglobin 14.2 O2 Delivery Device Room air O2 Liters/Min Not Reportable FiO2 21 Sodium 152 H 151 H Potassium 4.0 3.7 Chloride 118 H 116 H Carbon Dioxide 28 27 Anion Gap 6 8 BUN 42 H 41 H D Creatinine 1.33 H 1.50 H Estim Creat Clear Calc 33 34 Estimated GFR 51 L 45 L Glucose 112 H 147 H Lactic Acid 0.8 Calcium 8.7 9.4 Total Bilirubin 1.0 AST 36 ALT 31 Alkaline Phosphatase 137 H Total Creatine Kinase 163 Total Protein 7.0 Albumin 3.8 Urine Color Urine Appearance Urine pH Ur Specific [place] Urine Protein Urine Glucose (UA) Urine Ketones Ur Blood (Man) Urine Nitrate Urine Bilirubin Urine Urobilinogen Add Ur Microanalysis Leukocyte Esterase Rfl Urine RBC Urine WBC Ur Squamous Epith Cells Urine Bacteria Urine Casts 10/27/25 18:23 WBC RBC Hgb Hct MCV MCH MCHC RDW Plt Count MPV Immature Gran % (Auto) Neut % (Auto) Lymph % (Auto) [place] % (Auto) Eos % (Auto) Baso % (Auto) Lymph # (Auto) [place] # (Auto) Eos # (Auto) Baso # (Auto) Abs Immat Gran (auto) Absolute Neuts (auto) Absolute Nucleated RBC Nucleated RBC % PT INR APTT Puncture Site ABG pH ABG pCO2 ABG pO2 ABG PO2/FiO2 Ratio ABG HCO3 ABG O2 Saturation ABG O2 Content ABG Base Excess A-a Gradient Oxyhemoglobin Total Hemoglobin O2 Delivery Device O2 Liters/Min FiO2 Sodium Potassium Chloride Carbon Dioxide Anion Gap BUN Creatinine Estim Creat Clear Calc Estimated GFR Glucose Lactic Acid Calcium Total Bilirubin AST ALT Alkaline Phosphatase Total Creatine Kinase Total Protein Albumin Urine Color Yellow Urine Appearance Clear Urine pH 5.0 Ur Specific [place] 1.013 Urine Protein Negative Urine Glucose (UA) Negative Urine Ketones Negative Ur Blood (Man) 2+ H Urine Nitrate Negative Urine Bilirubin Negative Urine Urobilinogen 1.0 Add Ur Microanalysis Reviewed Leukocyte Esterase Rfl Negative Urine RBC 21-50 H Urine WBC 0-5 Ur Squamous Epith Cells None seen Urine Bacteria None seen Urine Casts 0-2 Discharge Plan Discharge Attending physician on discharge: Fahad Morelos Consulting providers: Leonides Jones Discharging Clinician: Leonides Jones Anticipated Discharge Date/Time: 10/28/25 16:03 Patient Disposition: Hospice - Medical Facility Activity: as tolerated Diet: regular Discharge Instructions: Disposition: Hospice General Inpatient Patient Instructions: Antibiotic Form Patient Language: Romansh Stand Alone Forms: General Discharge Information Follow-up/Referrals: PHYSICIAN,TEXTILE WORKER [Primary Care Provider, Internal Medicine] Discharge Medications: Continued albuterol sulfate 90 mcg/actuation HFA aerosol inhaler 2 puff INHALATION BID amlodipine 2.5 mg tablet 2.5 mg PO QAM haloperidol lactate 5 mg/mL solution 2 mg IM Q8H PRN (Reason: agitation) hydrocodone-acetaminophen 5-325 mg tablet 1 tablet PO Q4H furosemide 40 mg tablet 40 mg PO QAM escitalopram oxalate 20 mg tablet 20 mg PO DAILY lorazepam 0.5 mg tablet 0.5 mg PO Q12H PRN (Reason: Anxiety) lorazepam 1 mg tablet 1 mg PO Q24H PRN (Reason: agitation) losartan 100 mg tablet 100 mg PO HS metoprolol succinate 25 mg tablet extended release 24 hr 12.5 mg PO QAM mirtazapine 7.5 mg tablet 7.5 mg PO HS quetiapine 50 mg tablet 50 mg PO TID mupirocin 2 % ointment 1 applic TOPICAL BID PRN (Reason: Bilateral knee swelling) Date of admission: 10/27/25 21:50 Primary Care Provider: PHYSICIAN,TEXTILE WORKER Admitting Provider: Jaki Castaneda Attending physician on admission: Jaki Castaneda Condition: Stable
== END 2025-10-28 16:16 | disposition hospice, inpatient (51) ==
LOC: ANHED 21:50 → ANH2MED 23:18 → ANH3MEDSUR 10-30 08:13
PROVIDERS: Admitting Provider Internal Medicine; Emergency Provider Emergency Medicine; Visit Provider Internal Medicine
DX: F03.C18 Unspecified dementia, severe, with other behavioral disturbance (principal); E87.0 Hyperosmolality and hypernatremia; N17.9 Acute kidney failure, unspecified; E86.0 Dehydration; S09.90XD Unspecified injury of head, subsequent encounter; R94.31 Abnormal electrocardiogram [ECG] [EKG]; I11.0 Hypertensive heart disease with heart failure; I50.20 Unspecified systolic (congestive) heart failure; F32.A Depression, unspecified; I71.21 Aneurysm of the ascending aorta, without rupture; I25.10 Atherosclerotic heart disease of native coronary artery without angina pectoris; Z79.891 Long term (current) use of opiate analgesic; Z79.2 Long term (current) use of antibiotics
CPT/HCPCS: 36415; 36600; 70450; 70486; 71045; 71250; 72128; 72131; 74176; 80048; 80053; 81001; 82550; 82805; 83605; 85018; 85025; 85027; 85610; 85730; 93005; 96361; 96374; 96375; 99285; A9270; G0378; J2270; J2405; J7030

== ENCOUNTER 2025-10-28 16:16 | HOS | payer OTHER, MEDICARE, SELFPAY ==
--- NOTE | 2025-10-28 16:38 | P.HP_ITS ---
H&P: HPI History of Present Illness Date/Time: 10/28/25 16:38 Chief Complaint: 84-year-old gentleman with history of dementia coronary artery disease congestive heart failure and hypertension was residing in assisted living facility. He was ambulatory with a cane and required assistance for ADLs and was continent of urine most of the time. He had a fall October 23 was of abdomen emergency department and treated conservatively for head trauma periorbital contusion. After the fall his oral intake decrease he was more confused with agitation and behaviors and resistant to care. He was readmitted [facility] October 27 with increased creatinine at 1.5. He was not eating or drinking and was oriented to person only and very resistant to care. He was intermittently agitated and combative. After admission to acute care for hydration he continue refused to eat despite improvement in his creatinine. His brother who is prior umbrella cutter opted for comfort care only based on the patient's previously expressed wishes his advanced age and his multiple comorbidities. His previous PPS score was 50. Current PPS score is 20. Review of Systems Review of Systems: ROS unobtainable: Yes unobtainable due to medical condition [facility] Past Medical History Medical History Dementia Essential hypertension Coronary artery disease Systolic heart failure Aneurysm of ascending aorta Surgical History Surgical History Surgical history unknown Family History Family History Other Unknown family medical history Social History Social History Social History: Code status: DNR/DNI Healthcare power of umbrella cutter: Jackson (brother) Smoking status: Unknown if ever smoked Alcohol intake: unknown Substance use: unknown Spiritual care concerns: Yes Meds Home Medications and Allergies Home Medications ?Medication ?Instructions ?Recorded ?Confirmed ?Type albuterol sulfate 90 mcg/actuation 2 puff inhalation B ID Shortness of 10/28/25 10/28/25 History aerosol inhaler breath amlodipine 2.5 mg tablet 2.5 mg PO QAM Hypertension 1 12/29/24 10/28/25 History escitalopram oxalate 20 mg tablet 20 mg PO DAILY Depre ssion 10/28/25 10/28/25 History furosemide 40 mg tablet 40 mg PO QAM Edema 10/28/25 10/28/25 History haloperidol lactate 5 mg/mL 2 mg IM Q8H PRN agitation 10/28/25 10/28/25 History injection solution hydrocodone 5 mg-acetaminophen 325 1 tablet PO Q4H Guerrero ateral knee pain 10/28/25 10/28/25 History mg tablet lorazepam 0.5 mg tablet 0.5 mg PO Q12H PRN Anxiety 1 12/29/24 10/28/25 History lorazepam 1 mg tablet 1 mg PO Q24H PRN agitation 1 12/29/24 10/28/25 History losartan 100 mg tablet 100 mg PO HS Hypertension 10/28/25 History metoprolol succinate 25 mg 12.5 mg PO QAM Hypertension 10/28/25 10/28/25 History tablet,extended release 24 hr mirtazapine 7.5 mg tablet 7.5 mg PO HS Behavior 10/28/25 History mupirocin 2 % topical ointment 1 applic topical BID NE N Bilateral 10/28/25 10/28/25 History knee swelling quetiapine 50 mg tablet 50 mg PO TID Dementia, behav ioral 10/28/25 10/28/25 History disturbances Allergies Allergy/AdvReac Type Severity Reaction Status Date / Time levofloxacin (From Levaquin) Allergy Unknown Verified 10/28/25 00:38 metoprolol Allergy Unknown Verified 10/28/25 00:38 oxycodone (From OxyContin) Allergy Unknown Verified 10/28/25 00:38 Exam Narrative: HEENT: Pharyngeal mucosa pink and intact NECK: No JVD CHEST: Clear to auscultation, normal effort HEART: NL S1/S2, regular, no murmur ABDOMEN: BS hypoactive, soft, nontender, no mass, no bruits EXTREMITIES: No edema NEUROLOGIC: CN intact and symmetric to inspection MUSCULOSKELETAL: No deformities to inspection PSYCH: Drowsy. Arouses only to noxious stimuli Assessment and Plan Assessment and plan (1) Hospice care: Code(s): Z51.5 - Encounter for palliative care Status: Acute Assessment and Plan: * Meet inpatient hospice criteria due to requiring continuous IV hydromorphone and scheduled IV diazepam for symptom management * PRN palliative regimen ordered (2) Dementia: Qualifiers: Dementia behavioral or psychological symptom: with other behavioral di sturbance Dementia severity: severe Dementia type: unspecified type Qualified Code(s): F03.C18 - Unspecified dementia, severe, with other behavioral disturbance Code(s): F03.90 - Unspecified dementia, unspecified severity, without behavioral disturbance, psychotic disturbance, mood disturbance, and anxiety Status: Acute (3) CHI (closed head injury): Qualifiers: Encounter type: subsequent encounter Qualified Code(s): S09.90XD - Unspecified injury of head, subsequent encounter Code(s): S09.90XA - Unspecified injury of head, initial encounter Status: Acute (4) JACKLYN (acute kidney injury): Code(s): N17.9 - Acute kidney failure, unspecified Status: Acute
[2025-10-28 17:00] VITALS: PULSE 98; RESP 20
[2025-10-28] MEDS: HYDROmorphone HCL/PF (*CRX) 50 MG in SODIUM CHLORIDE 0.9% IV 95 ML IV CONT (17:00)
[2025-10-28 18:21] VITALS: BMI 27.7
[2025-10-28 21:06] VITALS: BP 139/70; PULSE 87; RESP 14; TEMP 36.9; O2SAT 95
[2025-10-28] MEDS: diazePAM INJ (*CRX) 10 MG/2 ML SYRINGE 5 MG IV PUSH (21:08)
[2025-10-29] MEDS: diazePAM INJ (*CRX) 10 MG/2 ML SYRINGE 5 MG IV PUSH ×3 (06:22→21:34)
[2025-10-29 10:06] VITALS: BP 147/61; PULSE 98; RESP 20; TEMP 37.3; O2SAT 96
--- NOTE | 2025-10-29 14:14 | P.PNIM_ITS ---
Assessment and Plan Assessment and Plan (1) Hospice care: Code(s): Z51.5 - Encounter for palliative care Status: Acute Assessment and Plan: * Meet inpatient hospice criteria due to requiring continuous IV hydromorphone and scheduled IV diazepam for symptom management * PRN palliative regimen ordered * 10/29/2025: Breath sounds more course, low-grade temperature, less responsive, still requiring continuous IV hydromorphone and scheduled IV diazepam for control of symptoms (2) Dementia: Qualifiers: Dementia behavioral or psychological symptom: with other behavioral disturbance Dementia severity: severe Dementia type: unspecified type Q ualified Code(s): F03.C18 - Unspecified dementia, severe, with other behavioral disturbance Code(s): F03.90 - Unspecified dementia, unspecified severity, without behavioral disturbance, psychotic disturbance, mood disturbance, and anxiety Status: Acute (3) CHI (closed head injury): Qualifiers: Encounter type: subsequent encounter Qualified Code(s): S09.90XD - Unspecified injury of head, subsequent encounter Code(s): S09.90XA - Unspecified injury of head, initial encounter Status: Acute (4) JACKLYN (acute kidney injury): Code(s): N17.9 - Acute kidney failure, unspecified Status: Acute Subjective Date/time seen: 10/29/25 14:14 Interval history: Remains comfortable on current regimen. No p.o. intake. Review of Systems Review of Systems: ROS unobtainable: Yes unobtainable due to medical condition Exam Narrative: HEENT: Pharyngeal mucosa pink and intact NECK: No JVD CHEST: Coarse, mildly tachypneic HEART: NL S1/S2, regular, no murmur ABDOMEN: BS hypoactive, soft, nontender, no mass, no bruits EXTREMITIES: No edema NEUROLOGIC: CN intact and symmetric to inspection MUSCULOSKELETAL: No deformities to inspection PSYCH: Sleeping, arouses minimally only to noxious stimuli Objective Data Vital Signs Vital Signs: Vital Signs - 24 hr 10/28/25 17:00 10/28/25 21:06 10/29/25 10:06 Temperature 98.4 F 99.2 F Pulse Rate 98 87 98 Respiratory Rate 20 14 20 Blood Pressure 139/70 147/61 H Pulse Oximetry 95 96 Intake/Output Intake/Output: Intake & Output 10/26/25 10/27/25 10/28/25 10/29/25 23:59 23:59 23:59 23:59 Intake Total 0 Output Total 550 Balance -550 Meds/Results Medications: Active Medications Generic Name Dose Route Start Last Admin Trade Name Freq PRN Reason Stop Dose Admin Acetaminophen 650 mg 10/28/25 16:42 Acetaminophen 650 Mg Suppository RECTAL Q6H PRN Mild Pain (1-3) Or Fever Artificial Tears 1 drop 10/28/25 16:42 Artificial Tears Ophth Soln 15 Ml Bottle EACH EYE BID PRN Dry Eye(s) Bisacodyl 10 mg 10/28/25 16:42 Bisacodyl 10 Mg Suppository RECTAL DAILY PRN Constipation Diazepam 5 mg 10/28/25 22:00 10/29/25 13:10 Diazepam Inj (*Crx) 10 Mg/2 Ml Syringe IV PUSH 5 mg Q8HR SERGE Administration Diazepam 5 mg 10/28/25 16:35 Diazepam Inj (*Crx) 10 Mg/2 Ml Syringe IV PUSH Q4H PRN Restlessness/agitation Glycopyrrolate 0.1 mg 10/28/25 16:37 Glycopyrrolate Inj (*Sp) 0.2 Mg/Ml Vial IV PUSH Q4H PRN Secretions Hydromorphone HCl 0.5 mg 10/28/25 16:29 Hydromorphone Hcl Inj (*Crx) 1 Mg/Ml Syr IV PUSH Q1H PRN Pain/dyspnea Hydromorphone HCl 50 mg/ 100 mls @ 0.5 mls/hr 10/28/25 16:30 10/28/25 17:00 Sodium Chloride IV CONT 0.25 mg/hr .Q24H SERGE 0.5 mls/hr 0.25 MG/HR Administration Prochlorperazine Edisylate 10 mg 10/28/25 16:37 Prochlorperazine Edisylate 10 Mg/2 Ml Vial IV PUSH Q6H PRN Nausea And Vomiting
[2025-10-29 18:01] VITALS: PULSE 87; RESP 20
[2025-10-29] MEDS: HYDROmorphone HCL/PF (*CRX) 50 MG in SODIUM CHLORIDE 0.9% IV 95 ML IV CONT (18:01)
[2025-10-29 21:06] VITALS: BP 156/40; PULSE 71; RESP 16; TEMP 39.6; O2SAT 92
[2025-10-29 21:14] VITALS: TEMP 39.6
[2025-10-29] MEDS: ACETAMINOPHEN 650 MG SUPPOSITORY RECTAL (21:14)
[2025-10-29] MEDS: GLYCOPYRROLATE INJ (*SP) 0.2 MG/ML VIAL 0.1 MG IV PUSH (21:29)
[2025-10-30] VITALS (7 sets, daily range): BP systolic 110; BP diastolic 40; PULSE 68–107; RESP 21–50; TEMP 37.3–40.1; O2SAT 72
[2025-10-30] MEDS: ACETAMINOPHEN 650 MG SUPPOSITORY RECTAL (05:37)
[2025-10-30] MEDS: diazePAM INJ (*CRX) 10 MG/2 ML SYRINGE 5 MG IV PUSH ×3 (05:38→16:09)
[2025-10-30] MEDS: GLYCOPYRROLATE INJ (*SP) 0.2 MG/ML VIAL 0.1 MG IV PUSH ×2 (05:38→12:16)
--- NOTE | 2025-10-30 12:25 | P.PNIM_ITS ---
Assessment and Plan Assessment and Plan (1) Hospice care: Code(s): Z51.5 - Encounter for palliative care Status: Acute Assessment and Plan: * Meet inpatient hospice criteria due to requiring continuous IV hydromorphone and scheduled IV diazepam for symptom management * PRN palliative regimen ordered * 10/29/2025: Breath sounds more course, low-grade temperature, less responsive, still requiring continuous IV hydromorphone and scheduled IV diazepam for control of symptoms * 10/30/2025 breath sounds more coarse with crackles, fever, unresponsive, continues require IV hydromorphone continuously and scheduled diazepam (2) Dementia: Qualifiers: Dementia behavioral or psychological symptom: with other behavioral disturbance Dementia severity: severe Dementia type: unspecified type Qualified Code(s): F03.C18 - Unspecified dementia, severe, with other behavioral disturbance Code(s): F03.90 - Unspecified dementia, unspecified severity, without behavioral disturbance, psychotic disturbance, mood disturbance, and anxiety Status: Acute (3) CHI (closed head injury): Qualifiers: Encounter type: subsequent encounter Qualified Code(s): S09.90XD - Unspecified injury of head, subsequent encounter Code(s): S09.90XA - Unspecified injury of head, initial encounter Status: Acute (4) JACKLYN (acute kidney injury): Code(s): N17.9 - Acute kidney failure, unspecified Status: Acute Subjective Date/time seen: 10/30/25 12:25 Interval history: Comfortable in spite of fever and rattling respirations. Review of Systems Review of Systems: ROS unobtainable: Yes unobtainable due to medical condition Exam Narrative: HEENT: Pharyngeal mucosa pink and intact NECK: No JVD CHEST: Coarse breath sounds with diffuse coarse crackles, mildly tachypneic HEART: NL S1/S2, regular, no murmur ABDOMEN: BS hypoactive, soft, nontender, no mass, no bruits EXTREMITIES: No edema NEUROLOGIC: CN intact and symmetric to inspection MUSCULOSKELETAL: No deformities to inspection PSYCH: Unresponsive to verbal or tactile stimuli Objective Data Vital Signs Vital Signs: Vital Signs - 24 hr 10/29/25 18:01 10/29/25 18:01 10/29/25 21:06 Temperature 103.2 F H Pulse Rate 87 87 71 Respiratory Rate 20 20 16 Blood Pressure 156/40 H Pulse Oximetry 92 10/29/25 21:14 10/30/25 00:38 10/30/25 05:37 Temperature 103.2 F H 102.7 F H 102 F H Pulse Rate Respiratory Rate Blood Pressure Pulse Oximetry 10/30/25 05:37 10/30/25 05:48 10/30/25 08:17 Temperature 104 F H 104.1 F H 103.5 F H Pulse Rate Respiratory Rate Blood Pressure Pulse Oximetry 10/30/25 12:00 Temperature 99.8 F H Pulse Rate Respiratory Rate Blood Pressure Pulse Oximetry Intake/Output Intake/Output: Intake & Output 10/27/25 10/28/25 10/29/25 10/30/25 23:59 23:59 23:59 23:59 Intake Total 12.5 0 Output Total 700 100 Balance -687.5 -100 Meds/Results Medications: Active Medications Generic Name Dose Route Start Last Admin Trade Name Freq PRN Reason Stop Dose Admin Acetaminophen 650 mg 10/28/25 16:42 10/30/25 05:37 Acetaminophen 650 Mg Suppository RECTAL 650 mg Q6H PRN Administration Mild Pain (1-3) Or Fever Artificial Tears 1 drop 10/28/25 16:42 Artificial Tears Ophth Soln 15 Ml Bottle EACH EYE BID PRN Dry Eye(s) Bisacodyl 10 mg 10/28/25 16:42 Bisacodyl 10 Mg Suppository RECTAL DAILY PRN Constipation Diazepam 5 mg 10/28/25 22:00 10/30/25 05:38 Diazepam Inj (*Crx) 10 Mg/2 Ml Syringe IV PUSH 5 mg Q8HR SERGE Administration Diazepam 5 mg 10/28/25 16:35 10/30/25 12:17 Diazepam Inj (*Crx) 10 Mg/2 Ml Syringe IV PUSH 5 mg Q4H PRN Administration Restlessness/agitation Glycopyrrolate 0.1 mg 10/28/25 16:37 10/30/25 12:16 Glycopyrrolate Inj (*Sp) 0.2 Mg/Ml Vial IV PUSH 0.1 mg Q4H PRN Administration Secretions Hydromorphone HCl 0.5 mg 10/28/25 16:29 Hydromorphone Hcl Inj (*Crx) 1 Mg/Ml Syr IV PUSH Q1H PRN Pain/dyspnea Hydromorphone HCl 50 mg/ 100 mls @ 0.5 mls/hr 10/28/25 16:30 10/29/25 18:01 Sodium Chloride IV CONT 0.25 mg/hr .Q24H SERGE 0.5 mls/hr 0.25 MG/HR Administration Prochlorperazine Edisylate 10 mg 10/28/25 16:37 Prochlorperazine Edisylate 10 Mg/2 Ml Vial IV PUSH Q6H PRN Nausea And Vomiting
[2025-10-30] MEDS: HYDROmorphone HCL INJ (*CRX) 1 MG/ML SYR 0.5 MG IV PUSH (16:08)
[2025-10-30] MEDS: HYDROmorphone HCL/PF (*CRX) 50 MG in SODIUM CHLORIDE 0.9% IV 95 ML IV CONT (16:59)
--- NOTE | 2025-10-30 21:30 | PC.NURSE ---
This nurse was summoned to patients room where patient was found unresponsive in bed at 2121, no spontaneous respirations observed for 1 full minute. No apical pulse auscultated for 1 full minute by this nurse and another RN. Primary provider, nursing sandblaster supervisor, [facility] and family notified. Post- mortem care completed per protocol. IV removed, Body placed in shroud bag. Body transported to [facility].
--- NOTE | 2025-11-01 12:10 | P.DN_ITS ---
Discharge Summary Date and Time Date of : 10/30/25 Time of : 20:22 Provider Pronounced By: 2 RNs Name of First RN That Pronounced: Caryn Travis Name of Second RN That Pronounced: Radha Alejandra Probable Cause of Probable Cause of : Dementia unspecified with accelerated course due to recent close head trauma due to fall from standing height Summary Hospital Course: Mr. Norris was admitted to inpatient hospice service for symptom management. Medications were titrated to comfort. Mr. Norris peacefully. Additional Data Confirmation of as documented by pronouncing clinician: Pupillary Reflex, Palpable Pulses, Response to Stimuli, Heart Tones and Breath Sounds Name of Provider Notified: Emily Ge Provider Notified: 20:38 Family Requests Autopsy: No Sizing Machine Operator Notified: Yes Date [facility] Notified of : 10/30/25 Time [facility] Notified of : 20:54
== END 2025-10-30 22:00 | disposition expired | DRG 951 ==
PROVIDERS: Admitting Provider Internal Medicine; Visit Provider Internal Medicine
DX: Z51.5 Encounter for palliative care (principal); I50.22 Chronic systolic (congestive) heart failure; N17.9 Acute kidney failure, unspecified; S05.10XD Contusion of eyeball and orbital tissues, unspecified eye, subsequent encounter; W19.XXXD Unspecified fall, subsequent encounter; F03.90 Unspecified dementia, unspecified severity, without behavioral disturbance, psychotic disturbance, mood disturbance, and anxiety; I25.10 Atherosclerotic heart disease of native coronary artery without angina pectoris; I11.0 Hypertensive heart disease with heart failure; Z66 Do not resuscitate
CPT/HCPCS: A9270; J1171; J1596; J3360